=== PATIENT | female | born 1935 | race Caucasian/White ===

== ENCOUNTER 2021-07-24 05:53 | Emergency (ER) | payer MEDICARE, SELFPAY ==
--- NOTE | 2021-07-24 06:09 | ECG_ITS ---
Test Reason : HYPERTENSIVE Blood Pressure : / mmHG Vent. Rate : 076 BPM Atrial Rate : 076 BPM P-R Int : 174 ms QRS Dur : 098 ms QT Int : 386 ms P-R-T Axes : 072 -34 000 degrees QTc Int : 434 ms Sinus rhythm with Premature atrial complexes Left axis deviation Abnormal ECG When compared with ECG of 20-MAY-2020 12:00, No significant change was found Referred By: Generic ED Physician Electronically Signed By:CHRISSY VELEZ MD
[2021-07-24 06:11] VITALS: BP 196/95; PULSE 80; RESP 16; TEMP 36.7; O2SAT 97; BMI 31.7
[2021-07-24 06:37] LABS: MANUAL DIFF FLAG NO
--- NOTE | 2021-07-24 06:37 | ED_ITS ---
HPI - Weakness General Chief complaint: Weakness Stated complaint: High Blood Pressure Time Seen by Provider: 07/24/21 06:36 History of Present Illness HPI Narrative: Patient is an 85-year-old female presents today with having generalized malaise. Weakness. Feels palpitation has been ongoing since last night. Patient has a history of anxiety. No history of diabetes, hypertension, mi. patient from home. No focal weakness. No cough no congestion. Immunized for COVID. Patient from home. No focal weakness. No diaphoresis. No chest pain. No pain on urination. Related Data Allergies Allergy/AdvReac Type Severity Reaction Status Date / Time bacitracin [BACITRACIN] Allergy Intermediate BLISTERS Unverified 06/03/20 14:43 alendronate sodium Allergy Unknown TONGUE Unverified 06/03/20 14:43 [From FOSAMAX] SWELLING ciprofloxacin [CIPROFLOXACIN] Allergy Unknown TONGUE Unverified 06/03/20 14:43 SWELLING, swelling colesevelam [From WELCHOL] Allergy Unknown TONGUE Unverified 06/03/20 14:43 SWELLING metronidazole Allergy Unknown TONGUE Unverified 06/03/20 14:43 SWELLING niacin [NIACIN] Allergy Unknown TONGUE Unverified 06/03/20 14:43 SWELLING, swelling simvastatin [SIMVASTATIN] Allergy Unknown TONGUE Unverified 06/03/20 14:43 SWELLING, swelling SPECIAL SURGICAL DRESSING Allergy Intermediate BLISTERS Uncoded 06/03/20 14:43 flosamax Allergy Unknown swelling Uncoded 04/15/19 00:00 meronidacole Allergy Unknown swelling Uncoded 04/15/19 00:00 STEROIDS Allergy Unknown PRESSURE Uncoded 06/03/20 14:43 IN EYE Review of Systems Review of Systems: No chest pain or focal weakness no nausea no vomiting no change in medications Yes all other systems are reviewed and are negative [facility] Past Medical History Attestation statement: The following information was validated with the patient. Social History Social History Patient Tobacco Use Status: Never used Tobacco Use of substances other than those prescribed or required for medical reasons: No Advance Directives: No Physical Exam Vital Signs: Vital Signs: Last Vital Signs Temp 98.0 F 07/24/21 06:11 Pulse 80 07/24/21 06:11 Resp 16 07/24/21 06:11 BP 196/95 H 07/24/21 06:11 Pulse Ox 97 07/24/21 06:11 Body Mass Index 31.7 Appearance: Alert. Oriented X3. No acute distress. Eyes: Pupils equal, round and reactive to light. ENT: Pharynx normal. Neck: Normal inspection. Neck supple. No lymph nodes noted. No crepitus CVS: Normal heart rate and rhythm. Pulses normal. Normal S1 and S2 Respiratory: No respiratory distress. Breath sounds normal. No Wheezing. No rales Abdomen: Soft and nontender. No rigidity. No distention. good BS x4 Skin: Skin warm and dry. Normal skin color. Normal skin turgor. Extremities: No lower extremity edema. Neurovascular intact to all extremities. No Lacerations. No Rash Neuro: Oriented X 3. No motor deficit. No sensory deficit. Moving all extermities. No slurred speech MDM - Weakness MDM Narrative Medical decision making narrative: Patient neurologically intact. Heart rate was actually 75. EKG showed a sinus pattern OK QRS QT within normal limits is no acute ST segment elevation. Patient's electrolytes are normal. Neurologically intact. Well appearing. Symptoms improved with Ativan. Likely secondary to anxiety. Will discharge patient home. Urine showed no signs of infection. Lab Data Result diagrams: 07/24/21 06:29 07/24/21 06:29 Labs: Lab Results 07/24/21 07/24/21 07/24/21 Range/Units 06:29 06:29 06:29 WBC 6.9 (4.8-10.8) X10*3/uL RBC 4.91 (4.20-5.50) X10*6/uL Hgb 13.6 (12.0-16.0) g/dl Hct 42.1 (37.0-47.0) % MCV 85.7 (80.0-98.0) fL MCH 27.7 (27.0-33.0) pg MCHC 32.3 (31.0-35.0) g/dl RDW 13.8 (11.0-16.0) % Plt Count 272 (160-400) X10*3/uL MPV 10.0 (9.4-12.3) fL Immature Gran % (Auto) 0.4 (0.0-0.4) % Neut % (Auto) 74.3 H (45-73) % Lymph % (Auto) 16.5 L (20-40) % [place] % (Auto) 5.4 (2-11) % Eos % (Auto) 2.2 (0-4) % Baso % (Auto) 1.2 (0-2) % Lymph # (Auto) 1.1 L (1.2-4.9) X10*3/uL [place] # (Auto) 0.4 (0.1-1.2) X10*3/uL Eos # (Auto) 0.2 (0.0-0.4) X10*3/uL Baso # (Auto) 0.1 (0.0-0.2) X10*3/uL Abs Immat Gran (auto) 0.03 (0.00-0.03) X10*3/uL Absolute Neuts (auto) 5.1 (2.0-8.3) x10*3/uL Absolute Nucleated RBC 0.000 (0.0-0.012) X10*3/uL Nucleated RBC % (auto) 0.0 (0.0-0.2) /100WBC Sodium 141 (135-145) mmol/L Potassium 3.6 (3.3-5.1) mmol/L Chloride 107 (96-108) mmol/L Carbon Dioxide 26 (22-29) mmol/L Anion Gap 12 (12-20) BUN 13 (9-16) mg/dL Creatinine 0.71 (0.5-1.4) mg/dL Estim Creat Clear Calc 55.1 Estimated GFR > 60 Random Glucose 97 (60-115) mg/dL Calcium 9.1 (8.4-10.2) mg/dL Troponin I High Sens 4.0 (<3.5-17.0) ng/L Urine Color Urine Appearance Urine pH (5.0-8.0) Ur Specific [place] (1.005-1.025) Urine Protein (NEG-TRACE) MG/DL Urine Glucose (UA) (NEG) MG/DL Urine Ketones (NEG) MG/DL Urine Blood (NEG) Urine Nitrite (NEG) Ur Leukocyte Esterase (NEG) Urine RBC (0) /HPF Urine WBC (0-4) /HPF Ur Squamous Epith Cells /LPF Urine Bacteria /LPF 07/24/21 Range/Units 06:45 WBC (4.8-10.8) X10*3/uL RBC (4.20-5.50) X10*6/uL Hgb (12.0-16.0) g/dl Hct (37.0-47.0) % MCV (80.0-98.0) fL MCH (27.0-33.0) pg MCHC (31.0-35.0) g/dl RDW (11.0-16.0) % Plt Count (160-400) X10*3/uL MPV (9.4-12.3) fL Immature Gran % (Auto) (0.0-0.4) % Neut % (Auto) (45-73) % Lymph % (Auto) (20-40) % [place] % (Auto) (2-11) % Eos % (Auto) (0-4) % Baso % (Auto) (0-2) % Lymph # (Auto) (1.2-4.9) X10*3/uL [place] # (Auto) (0.1-1.2) X10*3/uL Eos # (Auto) (0.0-0.4) X10*3/uL Baso # (Auto) (0.0-0.2) X10*3/uL Abs Immat Gran (auto) (0.00-0.03) X10*3/uL Absolute Neuts (auto) (2.0-8.3) x10*3/uL Absolute Nucleated RBC (0.0-0.012) X10*3/uL Nucleated RBC % (auto) (0.0-0.2) /100WBC Sodium (135-145) mmol/L Potassium (3.3-5.1) mmol/L Chloride (96-108) mmol/L Carbon Dioxide (22-29) mmol/L Anion Gap (12-20) BUN (9-16) mg/dL Creatinine (0.5-1.4) mg/dL Estim Creat Clear Calc Estimated GFR Random Glucose (60-115) mg/dL Calcium (8.4-10.2) mg/dL Troponin I High Sens (<3.5-17.0) ng/L Urine Color STRAW Urine Appearance CLEAR Urine pH 6.0 (5.0-8.0) Ur Specific [place] <= 1.005 (1.005-1.025) Urine Protein NEG (NEG-TRACE) MG/DL Urine Glucose (UA) NEG (NEG) MG/DL Urine Ketones NEG (NEG) MG/DL Urine Blood NEG (NEG) Urine Nitrite NEG (NEG) Ur Leukocyte Esterase NEG (NEG) Urine RBC 0 (0) /HPF Urine WBC 0-2 (0-4) /HPF Ur Squamous Epith Cells 1+ /LPF Urine Bacteria TRACE /LPF Discharge Plan Discharge Clinical Impression: Anxiety Patient Disposition: Home, Self-Care Instructions: Anxiety (ED) Referrals: Roby Briscoe MD [Primary Care Provider] - 2 days
[2021-07-24 06:49] LABS: Basophils Absolute Auto 0.1 X10*3/uL (0.0-0.2); Basophils Percent Auto 1.2 % (0-2); Eosinophils Absolute Auto 0.2 X10*3/uL (0.0-0.4); Eosinophils Percent Auto 2.2 % (0-4); Hematocrit 42.1 % (37.0-47.0); Hemoglobin 13.6 g/dl (12.0-16.0); Imm Gran Abs Auto 0.03 X10*3/uL (0.00-0.03); Imm Gran Pct Auto 0.4 % (0.0-0.4); Lymphocytes Absolute Auto 1.1 X10*3/uL (1.2-4.9); Lymphocytes Percent Auto 16.5 % (20-40); Mean Corpuscular HGB Conc 32.3 g/dl (31.0-35.0); Mean Corpuscular Hemoglobin 27.7 pg (27.0-33.0); Mean Corpuscular Volume 85.7 fL (80.0-98.0); Monocytes Absolute Auto 0.4 X10*3/uL (0.1-1.2); Monocytes Percent Auto 5.4 % (2-11); Neutrophils Absolute Auto 5.1 x10*3/uL (2.0-8.3); Neutrophils Percent Auto 74.3 % (45-73); Platelet Count 272 X10*3/uL (160-400); Red Blood Count 4.91 X10*6/uL (4.20-5.50); Red Cell Distribution Width 13.8 % (11.0-16.0); White Blood Count 6.9 X10*3/uL (4.8-10.8)
[2021-07-24 06:51] LABS: Anion Gap 12 (12-20); Blood Urea Nitrogen 13 mg/dL (9-16); Calcium 9.1 mg/dL (8.4-10.2); Carbon Dioxide 26 mmol/L (22-29); Chloride 107 mmol/L (96-108); Creatinine Clr Calc Pharmacy 55.1; Estimated Glomerular Filt Rate > 60; Glucose Random 97 mg/dL (60-115); Potassium 3.6 mmol/L (3.3-5.1); Sodium 141 mmol/L (135-145)
[2021-07-24 06:52] LABS: Appearance Urine CLEAR; Color Urine STRAW; Glucose Urine UA NEG (NEG); Leukocyte Esterase Urine NEG (NEG); Nitrite Urine NEG (NEG); Specific Gravity - Urine <= 1.005 (1.005-1.025); Urine Blood NEG (NEG); Urine Ketones NEG (NEG); Urine Protein NEG (NEG-TRACE)
--- NOTE | 2021-07-24 07:02 | PC.NURSE ---
nad, sr on monitor, states she is feeling better
[2021-07-24 07:10] LABS: Bacteria Urine TRACE /LPF; RBC Urine 0 /HPF (0); Squamous Epithelial Cell Urine 1+ /LPF; WBC Urine 0-2 /HPF (0-4)
[2021-07-24] MEDS: LORazepam 0.5 MG TABLET 0.25 MG PO (07:57)
[2021-07-24 08:52] VITALS: BP 145/76; PULSE 74; RESP 15; O2SAT 98
== END 2021-07-24 08:56 | disposition home or self-care (01) ==
PROVIDERS: Emergency Provider Emergency Medicine Emergency Medical Services; PCP Internal Medicine
DX: F41.9 Anxiety disorder, unspecified (principal); R00.2 Palpitations; R53.81 Other malaise; E11.9 Type 2 diabetes mellitus without complications; I10 Essential (primary) hypertension; Z79.899 Other long term (current) drug therapy
CPT/HCPCS: 36415; 80048; 81001; 84484; 85025; 93005; 99283; 99284

== ENCOUNTER 2022-10-10 10:31 | Emergency (ER) | payer MEDICARE, SELFPAY ==
--- NOTE | ~2022-10-10 | CT_ITS ---
CT ANGIOGRAM NECK WITH CONTRAST CT ANGIOGRAM BRAIN WITH CONTRAST CLINICAL INFORMATION: Resolved slurred speech. COMPARISON: Head CT 05/20/2020. TECHNIQUE: Test bolus sequences followed by intravenous administration 70 mL of Omnipaque 350. Helical imaging was performed in the axial plane from the thoracic inlet to the skull vertex. Delayed postcontrast imaging of the head was also performed. The data was processed at the vascular technologist sonographer workstation for generation of MIP sequences. Angled MIPs and volume rendered reformatted images were also generated at an offline 3D workstation under concurrent supervision. Stenoses are assessed in accordance with NASCET criteria unless otherwise indicated. This CT examination was performed using dose optimization techniques as appropriate, variously including the following: *Automated exposure control *Adjustment of mA and/or kV according to patient size (this includes techniques or standardized protocols for targeted exams where dose is matched to indication/reason for exam; i.e. 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 [There is no intracranial hemorrhage, hydrocephalus, extra-axial surface collection, midline shift, or other herniation pattern. Rueda to white matter differentiation is diffusely maintained without evidence of an evolved acute territorial infarct. The basilar cisterns are preserved. No significant soft tissue abnormality. No acute osseous abnormality. The paranasal sinuses and the mastoid air cells are well aerated.] CERVICAL SOFT TISSUES AND LUNG APICES: There is advanced multilevel cervical spondylosis. Imaged upper lungs are clear. Multinodular thyroid gland with the largest nodule within the right thyroid lobe appearing heterogeneous, likely measuring at least 1.6 cm in size that can be further assessed with thyroid ultrasound. NECK CTA: [There is a classic 3 vessel configuration of the aortic arch. Proximal arch vessels are non-stenotic. The vertebral arteries are codominant. No significant ostial stenosis is visualized on either side. Both vertebral arteries are widely patent throughout their extracranial cervical course. Both common carotid arteries are normal in course and caliber.] There is mild atherosclerotic disease involving the right carotid bifurcation without significant stenosis involving the proximal right cervical ICA. BRAIN CTA: [There is normal opacification of major intracranial arteries. No focal flow-limiting stenosis nor discrete proximal large artery occlusion. No aneurysm. Timing of the contrast bolus allows assessment of the major dural venous sinuses, which all opacify normally] CT/CT angio head neck IMPRESSION: - There are no acute intracranial findings. Stable appearing small chronic infarct within the right occipital lobe. - No acute arterial occlusions and no significant arterial stenoses within the head or neck. - Multinodular thyroid gland with the largest nodule within the right thyroid lobe appearing heterogeneous, likely measuring at least 1.6 cm in size that can be further assessed with thyroid ultrasound. - Advanced multilevel cervical spondylosis.
--- NOTE | 2022-10-10 10:36 | ECG_ITS ---
Test Reason : HYPERTENSION Blood Pressure : / mmHG Vent. Rate : 077 BPM Atrial Rate : 077 BPM P-R Int : 182 ms QRS Dur : 098 ms QT Int : 388 ms P-R-T Axes : 019 -35 -17 degrees QTc Int : 439 ms Sinus rhythm with Premature atrial complexes Left axis deviation Minimal voltage criteria for LVH, may be normal variant ( R in aVL ) Abnormal ECG When compared with ECG of 24-JUL-2021 07:19, No significant change was found Referred By: Marleny Kaur Electronically Signed By:NGUYEN BOYKIN
[2022-10-10 10:38] LABS: Glucose, Whole Blood 102 mg/dL (60-115)
--- NOTE | 2022-10-10 10:39 | ED.NEUROSD ---
HPI - Neuro Symptoms/Deficit General Chief Complaint: Neuro Symptoms/Deficit Stated Complaint: ?TIA,-THIN,1/2LKWT,HI BP 198/97,L FACE DROOP RESOL Time Seen by Provider: 10/10/22 10:33 Source: patient, EMS and other (spouse) Mode of arrival: EMS Limitations: no limitations History of Present Illness HPI Narrative: 86 yo female with hx of anxiety has been under a lot of stress with husbands medical bills noted today she for seconds with basically one word had a hard time getting the word out and felt dizzy but this lasted for seconds and she was back to baseline. EMS noted no symptoms. she was HTNive. She took her anxiety medications. NO prior strokes not on blood thinners. Onset (ago): hour(s) (1) Timing confirmed by: spouse Location: speech History of same: No Severity: mild Quality: other (they report had a hard time getting a word out and her lip quivered) Relieving factors: time Exacerbating factors: none Context: sudden onset (only lasted about 5 seconds) On Anticoagulants: No Associated symptoms: other (anxiety) Treatments Prior to Arrival: other (aleve and buspirone) Related Data Allergies Allergy/AdvReac Type Severity Reaction Status Date / Time bacitracin [BACITRACIN] Allergy Intermediate BLISTERS Unverified 06/03/20 14:43 alendronate sodium Allergy Unknown TONGUE Unverified 06/03/20 14:43 [From FOSAMAX] SWELLING ciprofloxacin [CIPROFLOXACIN] Allergy Unknown TONGUE Unverified 06/03/20 14:43 SWELLING, swelling colesevelam [From WELCHOL] Allergy Unknown TONGUE Unverified 06/03/20 14:43 SWELLING metronidazole Allergy Unknown TONGUE Unverified 06/03/20 14:43 SWELLING niacin [NIACIN] Allergy Unknown TONGUE Unverified 06/03/20 14:43 SWELLING, swelling simvastatin [SIMVASTATIN] Allergy Unknown TONGUE Unverified 06/03/20 14:43 SWELLING, swelling SPECIAL SURGICAL DRESSING Allergy Intermediate BLISTERS Uncoded 06/03/20 14:43 flosamax Allergy Unknown swelling Uncoded 04/15/19 00:00 meronidacole Allergy Unknown swelling Uncoded 04/15/19 00:00 STEROIDS Allergy Unknown PRESSURE Uncoded 06/03/20 14:43 IN EYE Review of Systems Review of Systems: Constitutional : No Fever, No Chills, No Fatigue ENT/Mouth : No sore throat, No Rhinorrhea Eyes: No Eye Pain, No Swelling, No Redness Cardiovascular : No Chest Pain, No SOB, No Dyspnea on Exertion Respiratory : No Cough, No Sputum Gastrointestinal : No Nausea, No Vomiting, No Diarrhea, No abdominal Pain Genitourinary : No Dysuria, No Urinary Frequency, No Hematuria, Musculoskeletal : No joint pain, No Myalgias, No Joint Swelling Skin : No Skin Lesions, No rash Neuro : No Weakness, No Numbness, No Dizziness, no Headache Psych : pos Anxiety/Panic, No Depression Heme/Lymph: No Bruising, No Bleeding,No Lymphadenopathy Endocrine : No Polyuria, No Polydipsia All other systems reviewed and are negative [facility] Past Medical History Attestation statement: The following information was validated with the patient. Medical History Anxiety Social History Social History Patient Tobacco Use Status: Never used Tobacco Advance Directives: Yes Advance Directives on File: Yes Advance Directives Date on File: 09/26/22 Physical Exam Vital Signs: Vital Signs: Last Vital Signs Temp 98.3 F 10/10/22 14:40 Pulse 75 10/10/22 14:40 Resp 16 10/10/22 14:40 BP 170/75 H 10/10/22 14:40 Pulse Ox 97 10/10/22 14:40 O2 Del Method 10/10/22 14:40 BMI result Body Mass Index 29.0 Appearance: Alert. Oriented X3. No acute distress. anxious Eyes: Pupils equal, round and reactive to light. ENT: Pharynx normal. Neck: Normal inspection. Neck supple. CVS: Normal heart rate and rhythm. Pulses normal. Respiratory: No respiratory distress. Breath sounds normal. Abdomen: Soft and nontender. Skin: Skin warm and dry. Normal skin color. Normal skin turgor. Extremities: No lower extremity edema. No calf ttp Neuro: Oriented X 3. No motor deficit. No sensory deficit. Course Course Course Narrative: discussed with neurology given symptoms and only 5 seconds unlikely to be 5 seconds Medications Administered Discontinued Medications Generic Name Dose Route Start Last Admin Trade Name Freq PRN Reason Stop Dose Admin Iohexol 100 ml 10/10/22 13:24 10/10/22 13:25 Iohexol 350 Mg/Ml 100 Ml Infus..Btl IV 10/10/22 13:25 70 ml ONCE ONE Administration Medical Decision Making Medical Decision Making MDM Narrative: 86 yo female with PMH of anxiety per her and presented with 5 seconds of lip quiver and had a hard time getting one word out - at this time EMS noted no symptoms, NIH 0, she is at baseline, BP trending down - CTA and labs ordered, could be anxiety vs TIA though very brief and 5 seconds with lip quiver and one word seems very unusual. Dispo per results and findings. Differential Diagnosis Differential Diagnoses: The differential diagnosis associated with the presentation includes anxiety, TIA, HTN urgency Consult Healthcare Provider Management of the patient was discussed with: Transfer Controller (neurologist - unlikely to be TIA) Lab Data [facility] Lab Attestation statement: I reviewed the patient's lab results. 10/10/22 11:04 10/10/22 11:03 Labs: Lab Results 10/10/22 10/10/22 10/10/22 Range/Units 10:35 10:57 11:03 WBC (4.8-10.8) X10*3/uL RBC (4.20-5.50) X10*6/uL Hgb (12.0-16.0) g/dl Hct (37.0-47.0) % MCV (80.0-98.0) fL MCH (27.0-33.0) pg MCHC (31.0-35.0) g/dl RDW (11.0-16.0) % Plt Count (160-400) X10*3/uL MPV (9.4-12.3) fL Immature Gran % (Auto) (0.0-0.4) % Neut % (Auto) (45-73) % Lymph % (Auto) (20-40) % [place] % (Auto) (2-11) % Eos % (Auto) (0-4) % Baso % (Auto) (0-2) % Lymph # (Auto) (1.2-4.9) X10*3/uL [place] # (Auto) (0.1-1.2) X10*3/uL Eos # (Auto) (0.0-0.4) X10*3/uL Baso # (Auto) (0.0-0.2) X10*3/uL Abs Immat Gran (auto) (0.00-0.03) X10*3/uL Absolute Neuts (auto) (2.0-8.3) x10*3/uL Absolute Nucleated RBC (0.0-0.012) X10*3/uL Nucleated RBC % (auto) (0.0-0.2) /100WBC PT (10.0-13.1) SEC INR (0.9-1.1) Sodium 143 (135-145) mmol/L Potassium 4.3 (3.3-5.1) mmol/L Chloride 109 H (96-108) mmol/L Carbon Dioxide 25 (22-29) mmol/L Anion Gap 13 (12-20) BUN 19 H (9-16) mg/dL Creatinine 0.75 (0.5-1.4) mg/dL Estim Creat Clear Calc 59.1 Estimated GFR > 60 POC Glucose 102 (60-115) mg/dL Random Glucose 100 (60-115) mg/dL Calcium 9.5 (8.4-10.2) mg/dL Magnesium 2.0 (1.6-2.6) mg/dL Total Bilirubin 0.7 (0.0-1.0) mg/dL Direct Bilirubin 0.2 (0.0-0.5) mg/dL AST 16 (5-31) U/L ALT 15 (0-31) U/L Alkaline Phosphatase 94 (39-117) U/L Troponin I High Sens (<3.5-17.0) ng/L Total Protein 6.9 (6.5-8.0) g/dL Albumin 4.1 (3.5-5.0) g/dL Urine Color Urine Appearance Urine pH (5.0-9.0) Ur Specific [place] (1.005-1.025) Urine Protein (Neg-Trace) mg/dL Urine Glucose (UA) (Negative) mg/dL Urine Ketones (Negative) mg/dL Urine Blood (Negative) Urine Nitrite (Negative) Ur Leukocyte Esterase (Negative) COVID-19 (ALAN) Negative (Negative) COVID-19 Clin Com See Note 10/10/22 10/10/22 10/10/22 Range/Units 11:03 11:03 11:04 WBC 6.4 (4.8-10.8) X10*3/uL RBC 5.27 (4.20-5.50) X10*6/uL Hgb 14.3 (12.0-16.0) g/dl Hct 44.7 (37.0-47.0) % MCV 84.8 (80.0-98.0) fL MCH 27.1 (27.0-33.0) pg MCHC 32.0 (31.0-35.0) g/dl RDW 13.7 (11.0-16.0) % Plt Count 266 (160-400) X10*3/uL MPV 9.8 (9.4-12.3) fL Immature Gran % (Auto) 0.3 (0.0-0.4) % Neut % (Auto) 76.1 H (45-73) % Lymph % (Auto) 17.0 L (20-40) % [place] % (Auto) 4.4 (2-11) % Eos % (Auto) 1.1 (0-4) % Baso % (Auto) 1.1 (0-2) % Lymph # (Auto) 1.1 L (1.2-4.9) X10*3/uL [place] # (Auto) 0.3 (0.1-1.2) X10*3/uL Eos # (Auto) 0.1 (0.0-0.4) X10*3/uL Baso # (Auto) 0.1 (0.0-0.2) X10*3/uL Abs Immat Gran (auto) 0.02 (0.00-0.03) X10*3/uL Absolute Neuts (auto) 4.8 (2.0-8.3) x10*3/uL Absolute Nucleated RBC 0.000 (0.0-0.012) X10*3/uL Nucleated RBC % (auto) 0.0 (0.0-0.2) /100WBC PT 11.2 (10.0-13.1) SEC INR 1.0 (0.9-1.1) Sodium (135-145) mmol/L Potassium (3.3-5.1) mmol/L Chloride (96-108) mmol/L Carbon Dioxide (22-29) mmol/L Anion Gap (12-20) BUN (9-16) mg/dL Creatinine (0.5-1.4) mg/dL Estim Creat Clear Calc Estimated GFR POC Glucose (60-115) mg/dL Random Glucose (60-115) mg/dL Calcium (8.4-10.2) mg/dL Magnesium (1.6-2.6) mg/dL Total Bilirubin (0.0-1.0) mg/dL Direct Bilirubin (0.0-0.5) mg/dL AST (5-31) U/L ALT (0-31) U/L Alkaline Phosphatase (39-117) U/L Troponin I High Sens 4.8 (<3.5-17.0) ng/L Total Protein (6.5-8.0) g/dL Albumin (3.5-5.0) g/dL Urine Color Urine Appearance Urine pH (5.0-9.0) Ur Specific [place] (1.005-1.025) Urine Protein (Neg-Trace) mg/dL Urine Glucose (UA) (Negative) mg/dL Urine Ketones (Negative) mg/dL Urine Blood (Negative) Urine Nitrite (Negative) Ur Leukocyte Esterase (Negative) COVID-19 (ALAN) (Negative) COVID-19 Clin Com 10/10/22 Range/Units 11:14 WBC (4.8-10.8) X10*3/uL RBC (4.20-5.50) X10*6/uL Hgb (12.0-16.0) g/dl Hct (37.0-47.0) % MCV (80.0-98.0) fL MCH (27.0-33.0) pg MCHC (31.0-35.0) g/dl RDW (11.0-16.0) % Plt Count (160-400) X10*3/uL MPV (9.4-12.3) fL Immature Gran % (Auto) (0.0-0.4) % Neut % (Auto) (45-73) % Lymph % (Auto) (20-40) % [place] % (Auto) (2-11) % Eos % (Auto) (0-4) % Baso % (Auto) (0-2) % Lymph # (Auto) (1.2-4.9) X10*3/uL [place] # (Auto) (0.1-1.2) X10*3/uL Eos # (Auto) (0.0-0.4) X10*3/uL Baso # (Auto) (0.0-0.2) X10*3/uL Abs Immat Gran (auto) (0.00-0.03) X10*3/uL Absolute Neuts (auto) (2.0-8.3) x10*3/uL Absolute Nucleated RBC (0.0-0.012) X10*3/uL Nucleated RBC % (auto) (0.0-0.2) /100WBC PT (10.0-13.1) SEC INR (0.9-1.1) Sodium (135-145) mmol/L Potassium (3.3-5.1) mmol/L Chloride (96-108) mmol/L Carbon Dioxide (22-29) mmol/L Anion Gap (12-20) BUN (9-16) mg/dL Creatinine (0.5-1.4) mg/dL Estim Creat Clear Calc Estimated GFR POC Glucose (60-115) mg/dL Random Glucose (60-115) mg/dL Calcium (8.4-10.2) mg/dL Magnesium (1.6-2.6) mg/dL Total Bilirubin (0.0-1.0) mg/dL Direct Bilirubin (0.0-0.5) mg/dL AST (5-31) U/L ALT (0-31) U/L Alkaline Phosphatase (39-117) U/L Troponin I High Sens (<3.5-17.0) ng/L Total Protein (6.5-8.0) g/dL Albumin (3.5-5.0) g/dL Urine Color Yellow Urine Appearance Clear Urine pH 7.5 (5.0-9.0) Ur Specific [place] 1.010 (1.005-1.025) Urine Protein Negative (Neg-Trace) mg/dL Urine Glucose (UA) Negative (Negative) mg/dL Urine Ketones Trace (Negative) mg/dL Urine Blood Negative (Negative) Urine Nitrite Negative (Negative) Ur Leukocyte Esterase Negative (Negative) COVID-19 (ALAN) (Negative) COVID-19 Clin Com Independent Interpretation I performed an independent interpretation of an: EKG and CT Scan (no acute findings) Interpretation: Rate: 77 Rhythm: NSR [place]: left , LVH Normal P waves. Normal SHAAN. Normal QRS complex. ST T wave : no RAJENDRA, t wave inversion III and aVF qTC: normal prior studies: no acute ischemia The study has been interpreted contemporaneously by me. . Independent Historian Clinical information obtained from an independent historian. History obtained from or confirmed by: Spouse Prescription Management I considered prescription management with: Other (aspirin 81mg) NIH Stroke Scale Internal: Initial- Upon Arrival Level of Consciousness: Alert Level of Consciousness Questions: Answers both questions correctly Level of Consciousness Commands: Performs both tasks correctly Best Gaze: Normal Visual: No visual loss Facial Palsy: Normal Motor Arm (Right): No drift Motor Arm (Left): No drift Motor Leg (Right): No drift Motor Leg (Left): No drift Limb Ataxia: Absent Sensory: Normal Best Language: No aphasia Dysarthia: Normal Extinction and Inattention: No abnormality Score: 0 Discharge Plan Discharge Clinical Impression: Slurred speech Patient Disposition: Home, Self-Care Instructions: Transient Ischemic Attack (ED) Additional Instructions: return to ED for any worsening symptoms or concerns take a baby aspirin 81mg daily do not take with aleve, ibuprofen or any other NSAIDs follow up with your doctor this week return for numbness weakness or any other concerns. take your anxiety medications as prescribed Interventions: ED Discharge Assessment Last Done: 10/10/22 15:03 Discharge Date/Time: 10/10/22 15:23
[2022-10-10 10:47] VITALS: BP 175/77; PULSE 71; RESP 16; TEMP 36.7; O2SAT 98; BMI 29.0
[2022-10-10 10:49] VITALS: BP 175/77; PULSE 71; RESP 16; TEMP 36.7; O2SAT 99
--- NOTE | 2022-10-10 10:51 | PC.NURSE ---
86 y/o F BIBA from home with 5 second episode of word finding difficulty, sx now resolved. no facial droop/no thinners. HTN at home. pt is aox3, neuros intact. plan for labs. pt in gown, on monitor.
[2022-10-10 11:19] LABS: MANUAL DIFF FLAG NO
[2022-10-10 11:22] LABS: Basophils Absolute Auto 0.1 X10*3/uL (0.0-0.2); Basophils Percent Auto 1.1 % (0-2); Eosinophils Absolute Auto 0.1 X10*3/uL (0.0-0.4); Eosinophils Percent Auto 1.1 % (0-4); Hematocrit 44.7 % (37.0-47.0); Hemoglobin 14.3 g/dl (12.0-16.0); Imm Gran Abs Auto 0.02 X10*3/uL (0.00-0.03); Imm Gran Pct Auto 0.3 % (0.0-0.4); Lymphocytes Absolute Auto 1.1 X10*3/uL (1.2-4.9); Mean Corpuscular Hemoglobin 27.1 pg (27.0-33.0); Mean Corpuscular Volume 84.8 fL (80.0-98.0); Mean Platelet Volume 9.8 fL (9.4-12.3); Monocytes Absolute Auto 0.3 X10*3/uL (0.1-1.2); Monocytes Percent Auto 4.4 % (2-11); Neutrophils Absolute Auto 4.8 x10*3/uL (2.0-8.3); Neutrophils Percent Auto 76.1 % (45-73); Platelet Count 266 X10*3/uL (160-400); Red Blood Count 5.27 X10*6/uL (4.20-5.50); Red Cell Distribution Width 13.7 % (11.0-16.0); White Blood Count 6.4 X10*3/uL (4.8-10.8)
[2022-10-10 11:28] LABS: Prothrombin Time 11.2 SEC (10.0-13.1)
[2022-10-10 11:29] LABS: Appearance Urine Clear; Color Urine Yellow; Glucose Urine UA Negative (Negative); Leukocyte Esterase Urine Negative (Negative); Nitrite Urine Negative (Negative); PH 7.5 (5.0-9.0); Urine Blood Negative (Negative); Urine Ketones Trace mg/dL (Negative); Urine Protein Negative (Neg-Trace)
[2022-10-10 11:37] LABS: COVID-19 Test Negative (Negative); IDNOW Serial# 16C4AD1C
[2022-10-10 11:48] LABS: Troponin-I High Sensitivity 4.8 ng/L (<3.5-17.0)
[2022-10-10 11:56] LABS: Alanine Aminotransferase 15 U/L (0-31); Albumin Level 4.1 g/dL (3.5-5.0); Alkaline Phosphatase 94 U/L (39-117); Anion Gap 13 (12-20); Aspartate Amino Transferase 16 U/L (5-31); Bilirubin Total 0.7 mg/dL (0.0-1.0); Blood Urea Nitrogen 19 mg/dL (9-16); Calcium 9.5 mg/dL (8.4-10.2); Carbon Dioxide 25 mmol/L (22-29); Chloride 109 mmol/L (96-108); Creatinine Clr Calc Pharmacy 59.1; Estimated Glomerular Filt Rate > 60; Glucose Random 100 mg/dL (60-115); Potassium 4.3 mmol/L (3.3-5.1); Sodium 143 mmol/L (135-145); Total Protein 6.9 g/dL (6.5-8.0)
[2022-10-10 12:47] LABS: Bilirubin Direct 0.2 mg/dL (0.0-0.5)
[2022-10-10] MEDS: iohexoL 350 MG/ML 100 ML INFUS..BTL IV (13:25)
[2022-10-10 14:40] VITALS: BP 170/75; PULSE 75; RESP 16; TEMP 36.8; O2SAT 97
--- NOTE | 2022-10-10 15:13 | MHC.STROKE ---
1027 EMS PRE-NOTIFIED STROKE ALERT , DIFFICULTY SPEAKING LASTED 5 MINUTES. ARRIVED AT 1031, DR GILLESPIE EXAMINED PATIENT, NIHSS = 0, STROKE PROTOCOL NOT ACTIVATED. CT CTA H/N DONE. NO LVO. PRIOR STROKE NOTED. PATIENT NOT ON ASPIRIN, CASE DISCUSSED WITH DR CASEY. WILL START PATIENT ON ASPIRIN 81MG DAILY. I EXPLAINED THAT TO HER AND HER , I REVIEWED HER INDIVIDUAL RISK FACTORS FOR STROKE, WE ALSO DISCUSS ANTI-ANXIETY TECHNIQUES BECAUSE HER RELAYED THAT SHE GETS VERY NERVOUS, I PROVIDED REASSURANCE AND ANSWERED ALL OF THEIR QUESTIONS. SHE PASSED THE NURSING SWALLOW SCREEN PRIOR TO PO. SHE SEES DR QUIÑONES, HER PRIOR PCP RETIRED. SHE WILL FOLLOW UP WITH DR QUIÑONES AND CONSIDER A STATIN FOR FUTURE STROKE PREVENTION WELL. ALL OF THIS INFORMATION WAS RELAYED TO VERNA AND GABY.
== END 2022-10-10 15:23 | disposition home or self-care (01) ==
PROVIDERS: Emergency Provider Emergency Medicine; PCP Internal Medicine
DX: R47.81 Slurred speech (principal); R29.810 Facial weakness; F43.9 Reaction to severe stress, unspecified; Z20.822 Contact with and (suspected) exposure to COVID-19; Z20.828 Contact with and (suspected) exposure to other viral communicable diseases; Z79.899 Other long term (current) drug therapy
CPT/HCPCS: 36415; 70496; 70498; 80048; 80076; 81003; 82947; 83735; 84484; 85025; 85610; 87635; 93005; 99285; Q9967

== ENCOUNTER 2024-04-22 05:54 | Observation (INO) | payer MEDICARE, SELFPAY ==
[2024-04-22] VITALS (16 sets, daily range): BP systolic 128–181; BP diastolic 72–104; PULSE 70–90; RESP 10–18; TEMP 36.5–36.9; O2SAT 93–99; BMI 24.1; BMI 24.9
--- NOTE | 2024-04-22 | ECG_ITS ---
Test Reason : DIZZY Blood Pressure : / mmHG Vent. Rate : 082 BPM Atrial Rate : 082 BPM P-R Int : 204 ms QRS Dur : 102 ms QT Int : 378 ms P-R-T Axes : 063 -38 -11 degrees QTc Int : 441 ms Normal sinus rhythm Left axis deviation Abnormal ECG When compared with ECG of 10-OCT-2022 10:46, Premature atrial complexes are no longer Present Referred By: Generic ED Physician Electronically Signed By:ELBA MITCHELL MD
--- NOTE | ~2024-04-22 | CT_ITS ---
EXAMINATION: CT HEAD WITHOUT CONTRAST CLINICAL INFORMATION: Hypertension, acute onset dizziness COMPARISON: CT scan of brain on 10/10/2022 TECHNIQUE: Contiguous axial imaging was performed from the skull base to vertex without intravenous administration of contrast. This CT examination was performed using dose optimization techniques as appropriate, variously including the following: *Automated exposure control *Adjustment of mA and/or kV according to patient size (this includes techniques or standardized protocols for targeted exams where dose is matched to indication/reason for exam; i.e. extremities or head) *Use of iterative reconstruction technique DLP: 663 mGy-cm FINDINGS: Ventricles, sulci and cisterns are dilated. Wedge-shaped encephalomalacia is seen in lateral right occipital lobe. Unchanged asymmetric decrease in attenuation is seen in anterior limb of right internal capsule extending to anterior right may radiata. There is no midline shift, no abnormal intra- or extra- axial fluid accumulation. Rueda and white matter differentiation is normal. Bone window images show no evidence of skull fracture. CT/CT head/brain wo IV con IMPRESSION: 1. Unchanged age related cerebral atrophy and ventriculomegaly. 2. No intracranial hemorrhage or skull fracture is seen. 3. No evidence of space occupying lesion could be found. 4. 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 5. 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 6. The current plain CT scan of the brain shows no diagnostic evidence of acute cerebral infarction.
--- NOTE | ~2024-04-22 | XR_ITS ---
EXAMINATION: XR CHEST CLINICAL INFORMATION: Dizziness COMPARISON: CT chest 12/01/2015 Chest radiograph 01/21/2015 TECHNIQUE: Frontal view of the chest was obtained. FINDINGS: There is mild cardiac enlargement. No gross CHF is present. No pleural effusions are seen. No consolidations. Opacity overlying distal end of the left first rib likely a compilation of shadows. Small subcentimeter lung nodules seen at the time of the prior CT scan are beyond the resolution of this exam. Severe degenerative changes are present in both shoulders along with the spine. Biconvex thoracolumbar scoliosis is present. XR/XR chest 1V IMPRESSION: No acute intrathoracic disease. Incidental findings as described above.
--- NOTE | 2024-04-22 06:11 | PC.NURSE ---
provider aware of Blood pressure
[2024-04-22 06:26] LABS: MANUAL DIFF FLAG NO
--- NOTE | 2024-04-22 06:30 | ED.GENADULT ---
HPI - General Adult General Chief complaint: General Medical Stated complaint: HTN Time Seen by Provider: 04/22/24 06:30 Source: patient and RN notes reviewed Mode of arrival: ambulatory Limitations: no limitations History of Present Illness ED Provider: Lupe Clark PA-C HPI narrative: This is a 88-year-old female, with a history of TIA, who presents emergency department via EMS with complaints of high blood pressure and dizziness upon awakening this morning. Patient reports that upon wakening this morning she went to get up to use the bathroom and suddenly felt profoundly dizzy. She felt as though she was on a boat as well as the room was spinning around her. She called out to her who was in the other room out of approximately 5:15AM and patient then had her blood pressure taken by her and it was 180/120. She states that they then called 911 at that time. Her believes that she has not been drinking an adequate amount of water lately. She denies any headaches, chest pain, shortness for breath. No fevers or chills. No recent illness. She denies any recent surgery. Last TIA was many years ago. No other complaints or concerns at this time. MD complaint: Dizziness, high blood pressure Onset (ago): day(s) Radiation: non-radiation Quality: aching Pain Consistency: constant Relieving factors: none Exacerbating factors: none Associated symptoms: denies other symptoms Treatments prior to arrival: none Related Data Home Medications ?Medication ?Instructions ?Recorded ?Confirmed aspirin 81 mg tablet,delayed 81 mg PO DAILY 04/22/24 04/22/24 release dorzolamide 22.3 mg-timolol 6.8 1 drp ophthalmic (eye) Q12H 04/22/24 04/22/24 mg/mL eye drops latanoprost 0.005 % eye drops 1 drp ophthalmic (eye) BEDTIME 04/22/24 04/22/24 multivitamin 1 tab PO DAILY 04/22/24 04/22/24 Previous Rx's ?Medication ?Instructions ?Recorded meclizine 25 mg tablet 25 mg PO Q6H PRN Dizziness #15 tabs 04/24/24 metoprolol tartrate 25 mg tablet 25 mg PO BID #180 tabs 04/24/24 Allergies Allergy/AdvReac Type Severity Reaction Status Date / Time bacitracin [BACITRACIN] Allergy Intermediate BLISTERS Verified 04/22/24 18:22 alendronate sodium Allergy Unknown TONGUE Verified 04/22/24 18:22 [From FOSAMAX] SWELLING ciprofloxacin [CIPROFLOXACIN] Allergy Unknown TONGUE Verified 04/22/24 18:22 SWELLING, swelling colesevelam [From WELCHOL] Allergy Unknown TONGUE Verified 04/22/24 18:22 SWELLING metronidazole Allergy Unknown TONGUE Verified 04/22/24 18:22 SWELLING niacin [NIACIN] Allergy Unknown TONGUE Verified 04/22/24 18:22 SWELLING, swelling simvastatin [SIMVASTATIN] Allergy Unknown TONGUE Verified 04/22/24 18:22 SWELLING, swelling SPECIAL SURGICAL DRESSING Allergy Intermediate BLISTERS Uncoded 04/22/24 18:22 flosamax Allergy Unknown swelling Uncoded 04/22/24 18:22 meronidacole Allergy Unknown swelling Uncoded 04/22/24 18:22 STEROIDS Allergy Unknown PRESSURE Uncoded 04/22/24 18:22 IN EYE Review of Systems Review of Systems: Yes all other systems are reviewed and are negative Constitutional: Constitutional: Reports as per HPI ENT: Reports Normal hearing present Neurologic: Reports Normal hearing present [facility] Past Medical History Attestation statement: The following information was validated with the patient. Medical History History of TIA (transient ischemic attack) Anxiety Social History Social History Household Members: Spouse Housing: House Do you presently have visiting nurse or other home services: No Patient Tobacco Use Status: Never used Tobacco Advance Directives Date on File: 09/26/22 service: No Physical Exam ED Vital Signs: Vital Signs - 24 hr 04/22/24 06:11 04/22/24 06:21 04/22/24 06:34 Temperature 97.7 F Pulse Rate 83 81 81 Respiratory Rate 17 15 Blood Pressure 181/104 H Pulse Oximetry 99 97 Oxygen Delivery Method Room Air Room Air Oxygen Flow Rate 04/22/24 06:38 04/22/24 06:58 04/22/24 07:20 Temperature 97.7 F Pulse Rate 78 70 72 Respiratory Rate 16 12 Blood Pressure 158/78 H 158/87 H 156/83 H Pulse Oximetry 97 96 Oxygen Delivery Method Room Air Room Air Oxygen Flow Rate 04/22/24 08:05 04/22/24 10:24 04/22/24 12:13 Temperature 97.8 F 98.5 F Pulse Rate 74 76 81 Respiratory Rate 12 12 18 Blood Pressure 172/95 H 158/77 H 171/87 H Pulse Oximetry 98 97 Oxygen Delivery Method Room Air Room Air Room Air Oxygen Flow Rate 04/22/24 12:14 04/22/24 13:48 04/22/24 14:24 Temperature Pulse Rate 88 87 90 Respiratory Rate 14 14 11 L Blood Pressure 171/87 H 136/79 128/84 Pulse Oximetry 97 93 Oxygen Delivery Method Room Air Nasal Cannula Oxygen Flow Rate 3 BMI result Body Mass Index 24.1 Const General: cooperative, comfortable and no acute distress Orientation/consciousness: patient oriented x3 Limitations: no limitations HENMT Head: Yes normal to inspection, Yes normocephalic and Yes atraumatic Ears: hearing grossly normal bilaterally General nose exam: Normal external nose present Face and sinus: Yes normal facial exam Mouth: Normal oral and palatal mucosa present, oropharynx normal and moist mucous membranes Throat: Yes posterior oropharynx normal Eyes General: appearance normal, both eyes and all related structures Eyelids: Yes eyelids normal Conjunctivae: conjunctivae normal Sclerae: sclerae normal Pupils: Equal, round and reactive pupils present EOM: EOMs intact bilaterally Neck Neck: Yes normal visual inspection, Yes full ROM, Yes no lymphadenopathy and Yes no meningeal signs Lymphatic: no lymphadenopathy noted Chest Chest palpation & inspection: normal inspection of the chest Resp Effort & Inspection: normal respiratory effort and able to speak in complete sentences Auscultation: clear to auscultation bilaterally, no crackles, no rales, no rhonchi and no wheezes Cardio Rate: regular rate Rhythm: regular rhythm Heart sounds: S1 normal heart sound present and S2 normal heart sound present GI Inspection: Yes normal to inspection Skin General skin exam: no rashes or lesions noted Trauma: no lacerations or abrasions Wounds: no wounds Neuro General: patient oriented x3, moves all extremities, no meningeal signs and no focal motor deficits Cranial nerves: Yes CN's II-XII intact bilaterally, Yes Equal, round and reactive pupils present, Yes Bilaterally intact EOM present, Yes Normal facial strength present, Yes Midline tongue present, Yes Symmetric palate elevation present, Yes Normal hearing present, Yes Ability to bilaterally rotate head present and Yes Ability to bilaterally elevate shoulders present Cognition (Neuro): normal cognition Motor exam (neuro): 5/5 motor strength present throughout and Pronator motor function not present Coordination: [id number] test normal and [id number] test normal Extrem General: Yes normal to inspection Right upper extremity: normal to inspection Left upper extremity: normal to inspection Right lower extremity: normal to inspection Left lower extremity: normal to inspection NIH Stroke Scale Internal: Initial- Upon Arrival Time: 06:58 Level of Consciousness: Alert Level of Consciousness Questions: Answers both questions correctly Level of Consciousness Commands: Performs both tasks correctly Best Gaze: Normal Visual: No visual loss Facial Palsy: Normal Motor Arm (Right): No drift Motor Arm (Left): No drift Motor Leg (Right): No drift Motor Leg (Left): No drift Limb Ataxia: Absent Sensory: Normal Best Language: No aphasia Dysarthia: Normal Extinction and Inattention: No abnormality Score: 0 Course Reevaluation(s) Reevaluation #1: Patient unable to tolerate orthostatics due to profound dizziness. Will medicate with IV fluids. Dr. Dasilva recommending meclizine. Time: 07:39 Reevaluation #2: Patient re-evaluated, still reporting nausea and dizziness. She has received 1 L of IV fluids. Will medicate with Reglan 10mg IV. Time: 09:51 Reevaluation #3: Received critical troponin, this was a 2nd draw of 73.8. First troponin was 15. Pt feeling slightly improved, still having slight nausea and dizziness. Will admit to hospital service for positive tropinin and dizziness. Time: 11:23 Additional Reevaluation(s): 04/22/2024 1344 - still awaiting transfer of care at this point. Patient reporting increasing anxiety. Blood pressure 136/79. Patient re-evaluated again with Dr. Dasilva, attempted to get pt up out of bed, and unable to stand due to dizziness. If laying there, she does not experience any dizziness. Symptoms occur with positional changes. Reached out to Dr. Amor, from cardiology for input regarding +troponin. 1404 - spoke to Dr. Amor, Cardiology, stating that positive troponin likely due LV strain, recommending serial troponins every 6-8 hours as well as echocardiogram. Dr. Dasilva recommending valium 5mg dosage to help with nausea and vertigo. 1438 - Pt with drowsiness and decreased O2 after receiving valium 5mg, should have been PO but was ordered IV, pt placed on supplemental O2, she is arousable and alert, but droswy. Will continue to closely monitor. Pt was taken off of O2 after 1 hour of monitoring, she alert and oriented throughout entirety. Pt admitted to the hospital service for further management and workup for dizziness. Medications Administered Discontinued Medications Generic Name Dose Route Start Last Admin Trade Name Rodrigo PRN Reason Stop Dose Admin Aspirin 81 mg 04/23/24 09:00 04/24/24 09:21 Aspirin Enteric Coated 81 Mg Tablet.Dr PO 81 mg DAILY MAXWELL Administration Diazepam 5 mg 04/22/24 14:05 04/22/24 14:11 Diazepam 10 Mg/2 Ml Cartridge IVPUSH 04/22/24 14:06 5 mg STAT STA Administration Dorzolamide/Timolol 1 drop 04/22/24 15:30 04/22/24 18:33 Dorzolamide/Timolo 2.23%/0.68% 10 Ml Drbtl EYE-BOTH Not Given Q12H MAXWELL Dorzolamide/Timolol 1 drop 04/22/24 21:00 04/24/24 09:22 Dorzolamide/Timolo 2.23%/0.68% 10 Ml Drbtl EYE-BOTH 1 drop BID MAXWELL Administration Heparin Sodium (Porcine) 5,000 unit 04/22/24 16:00 04/24/24 03:35 Heparin Sodium,Porcine 5,000 Unit/Ml Vial SUBCUT 5,000 unit Q12H MAXWELL Administration Sodium Chloride 1,000 mls @ 999 mls/hr 04/22/24 07:39 04/22/24 08:41 Ns IV 04/22/24 08:39 Infused .Q1H1M ONE Infusion Sodium Chloride 1,000 mls @ 500 mls/hr 04/22/24 10:18 04/22/24 13:00 Ns IV 04/22/24 12:17 Infused .Q2H ONE Infusion Labetalol HCl 10 mg 04/22/24 06:15 04/22/24 06:34 Labetalol Hcl 100 Mg/20 Ml Vial IVPUSH 04/22/24 06:16 10 mg ONCE ONE Administration Latanoprost 1 drop 04/22/24 21:00 04/23/24 20:38 Latanoprost 0.005 % Ophth Amarilys 2.5 Ml Drops EYE-BOTH 1 drop BEDTIME MAXWELL Administration Meclizine HCl 25 mg 04/22/24 07:38 04/22/24 08:40 Meclizine Hcl 25 Mg Tablet PO 04/22/24 07:39 25 mg ONCE ONE Administration Meclizine HCl 25 mg 04/23/24 10:38 04/23/24 20:38 Meclizine Hcl 25 Mg Tablet PO 25 mg Q6H PRN Administration Dizziness Metoclopramide HCl 10 mg 04/22/24 10:17 04/22/24 10:51 Metoclopramide Hcl 10 Mg/2 Ml Vial IVPUSH 04/22/24 10:18 10 mg ONCE ONE Administration Metoprolol Tartrate 25 mg 04/22/24 21:00 04/24/24 09:22 Metoprolol Tartrate 25 Mg Tablet PO 25 mg BID MAXWELL Administration Protocol Multivitamins/Vitamin C 1 tab 04/23/24 09:00 04/24/24 09:22 Multivitamin Tablet PO 1 tab DAILY MAXWELL Administration Ondansetron HCl 4 mg 04/22/24 06:53 04/22/24 06:58 Ondansetron Hcl 4 Mg/2 Ml Vial IVPUSH 04/22/24 06:54 4 mg ONCE ONE Administration Ondansetron HCl 4 mg 04/23/24 11:54 04/23/24 20:38 Ondansetron Hcl 4 Mg/2 Ml Vial IVPUSH 4 mg Q6H PRN Administration Nausea and Vomiting Sodium Chloride 3 ml 04/22/24 16:00 04/24/24 09:23 0.9 % Sodium Chloride Flush 3 Ml Syringe IVFLUSH 3 ml QSHIFT MAXWELL Administration Medical Decision Making Medical Decision Making [facility] Narrative: This is a 88-year-old female, with a history of TIA, who presents emergency department with complaints of dizziness and nausea which started this morning. She states that her took her blood pressure this morning and it was 180s over 120s. She has no history of hypertension. No recent head trauma. She is not on blood thinners. On arrival, she is neurologically intact, with no focal deficits seen on examination. She has an NIH score of 0. Differential diagnoses include orthostatic hypotension, SDH, hypertensive emergency, electrolyte derangement. Patient medicated with labetalol 10 mg IV push as well as Zofran 4 mg IV push. Patient was also seen by my attending physician, Dr. Dasilva, who does not suspect cerebellar infarction at this time. Plan: Labs, EKG, chest x-ray, head CT, EKG, Differential Diagnosis Differential Diagnoses: The differential diagnosis associated with the presentation includes See above Lab Data MDM Lab Attestation statement: I reviewed the patient's lab results. No leukocytosis, stable H&H, chemistry with no electrolyte derangements. 04/23/24 05:35 04/23/24 05:35 Labs: Lab Results 04/22/24 04/22/24 04/22/24 Range/Units 06:20 10:53 12:37 WBC 5.9 (4.8-10.8) X10*3/uL RBC 4.75 (4.20-5.50) X10*6/uL Hgb 13.0 (12.0-16.0) g/dl Hct 39.8 (37.0-47.0) % MCV 83.8 (80.0-98.0) fL MCH 27.4 (27.0-33.0) pg MCHC 32.7 (31.0-35.0) g/dl RDW 14.1 (11.0-16.0) % Plt Count 244 (160-400) X10*3/uL MPV 9.5 (9.4-12.3) fL Immature Gran % (Auto) 0.2 (0.0-0.4) % Neut % (Auto) 59.6 (45-73) % Lymph % (Auto) 28.1 (20-40) % Dukes % (Auto) 6.6 (2-11) % Eos % (Auto) 4.1 H (0-4) % Baso % (Auto) 1.4 (0-2) % Lymph # (Auto) 1.7 (1.2-4.9) X10*3/uL Dukes # (Auto) 0.4 (0.1-1.2) X10*3/uL Eos # (Auto) 0.2 (0.0-0.4) X10*3/uL Baso # (Auto) 0.1 (0.0-0.2) X10*3/uL Abs Immat Gran (auto) 0.01 (0.00-0.03) X10*3/uL Absolute Neuts (auto) 3.5 (2.0-8.3) x10*3/uL Absolute Nucleated RBC 0.000 (0.0-0.012) X10*3/uL Nucleated RBC % (auto) 0.0 (0.0-0.2) /100WBC PT 12.3 (11.1-13.3) SEC INR 1.0 (0.9-1.1) APTT 31.7 (26.0-36.8) SEC Sodium 143 (135-145) mmol/L Potassium 3.7 (3.3-5.1) mmol/L Chloride 109 H (96-108) mmol/L Carbon Dioxide 24 (22-29) mmol/L Anion Gap 14 (12-20) BUN 19 H (9-16) mg/dL Creatinine 0.72 (0.5-1.4) mg/dL Estim Creat Clear Calc 47.5 Estimated GFR > 60 Random Glucose 98 (60-115) mg/dL Calcium 8.7 D (8.4-10.2) mg/dL Magnesium 1.9 (1.6-2.6) mg/dL Total Bilirubin 0.8 (0.0-1.0) mg/dL AST 15 (5-31) U/L ALT 11 (0-31) U/L Alkaline Phosphatase 64 (39-117) U/L Troponin I High Sens 15.6 D 73.8 H* D (<3.5-17.0) ng/L Total Protein 6.2 L (6.5-8.0) g/dL Albumin 3.5 (3.5-5.0) g/dL Urine Color Yellow Urine Appearance Clear Urine pH 8.0 (5.0-9.0) Ur Specific [place] 1.010 (1.005-1.025) Urine Protein Negative (Neg-Trace) mg/dL Urine Glucose (UA) Negative (Negative) mg/dL Urine Ketones Negative (Negative) mg/dL Urine Blood Negative (Negative) Urine Nitrite Negative (Negative) Ur Leukocyte Esterase Trace H (Negative) Urine RBC 0-2 (0-2) /HPF Urine WBC 6-10 H (0-5) /HPF Ur Squamous Epith Cells 0-2 (0-2) /HPF Urine Bacteria None Seen (None Seen) Hyaline Casts 0-2 (0-2) /LPF 04/22/24 Range/Units 13:48 WBC (4.8-10.8) X10*3/uL RBC (4.20-5.50) X10*6/uL Hgb (12.0-16.0) g/dl Hct (37.0-47.0) % MCV (80.0-98.0) fL MCH (27.0-33.0) pg MCHC (31.0-35.0) g/dl RDW (11.0-16.0) % Plt Count (160-400) X10*3/uL MPV (9.4-12.3) fL Immature Gran % (Auto) (0.0-0.4) % Neut % (Auto) (45-73) % Lymph % (Auto) (20-40) % Dukes % (Auto) (2-11) % Eos % (Auto) (0-4) % Baso % (Auto) (0-2) % Lymph # (Auto) (1.2-4.9) X10*3/uL Dukes # (Auto) (0.1-1.2) X10*3/uL Eos # (Auto) (0.0-0.4) X10*3/uL Baso # (Auto) (0.0-0.2) X10*3/uL Abs Immat Gran (auto) (0.00-0.03) X10*3/uL Absolute Neuts (auto) (2.0-8.3) x10*3/uL Absolute Nucleated RBC (0.0-0.012) X10*3/uL Nucleated RBC % (auto) (0.0-0.2) /100WBC PT (11.1-13.3) SEC INR (0.9-1.1) APTT (26.0-36.8) SEC Sodium (135-145) mmol/L Potassium (3.3-5.1) mmol/L Chloride (96-108) mmol/L Carbon Dioxide (22-29) mmol/L Anion Gap (12-20) BUN (9-16) mg/dL Creatinine (0.5-1.4) mg/dL Estim Creat Clear Calc Estimated GFR Random Glucose (60-115) mg/dL Calcium (8.4-10.2) mg/dL Magnesium (1.6-2.6) mg/dL Total Bilirubin (0.0-1.0) mg/dL AST (5-31) U/L ALT (0-31) U/L Alkaline Phosphatase (39-117) U/L Troponin I High Sens 70.0 H* (<3.5-17.0) ng/L Total Protein (6.5-8.0) g/dL Albumin (3.5-5.0) g/dL Urine Color Urine Appearance Urine pH (5.0-9.0) Ur Specific [place] (1.005-1.025) Urine Protein (Neg-Trace) mg/dL Urine Glucose (UA) (Negative) mg/dL Urine Ketones (Negative) mg/dL Urine Blood (Negative) Urine Nitrite (Negative) Ur Leukocyte Esterase (Negative) Urine RBC (0-2) /HPF Urine WBC (0-5) /HPF Ur Squamous Epith Cells (0-2) /HPF Urine Bacteria (None Seen) Hyaline Casts (0-2) /LPF Independent Interpretation I performed an independent interpretation of an: EKG Interpretation: 04/22/2024 06:09AM Normal sinus rhythm at a ventricular rate of 82 beats per minute, PA interval 204. QT QTC 378/441, no ST elevation or depression. 04/22/2024 11:28AM - normal sinus rhythm at a ventricular rate of 74 beats per minute, PA interval 172, QT QTC 410/455, no ST elevation or depression. Radiology Impression Discussion of test interpretation with radiology: I have reviewed the radiologist's reading. Radiologist Impression: CT/CT head/brain wo IV con IMPRESSION: 1. Unchanged age related cerebral atrophy and ventriculomegaly. 2. No intracranial hemorrhage or skull fracture is seen. 3. No evidence of space occupying lesion could be found. 4. 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 5. 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 6. The current plain CT scan of the brain shows no diagnostic evidence of acute cerebral infarction. Dictated By: Callie Meek XR/XR chest 1V IMPRESSION: No acute intrathoracic disease. Incidental findings as described above. Dictated By: Harshad Crow MD Independent Historian Clinical information obtained from an independent historian. History obtained from or confirmed by: Spouse Discharge Plan Discharge Clinical Impression: Dizziness, Elevated troponin Patient Disposition: Admitted As Inpatient Interventions: Admission Worksheet (ED) Last Done: 04/22/24 19:28 Discharge Date/Time: 04/22/24 21:15
[2024-04-22] MEDS: Labetalol HCL 100 MG/20 ML VIAL 10 MG IVPUSH (06:34)
[2024-04-22 06:35] LABS: Basophils Absolute Auto 0.1 X10*3/uL (0.0-0.2); Basophils Percent Auto 1.4 % (0-2); Eosinophils Absolute Auto 0.2 X10*3/uL (0.0-0.4); Eosinophils Percent Auto 4.1 % (0-4); Hematocrit 39.8 % (37.0-47.0); Imm Gran Abs Auto 0.01 X10*3/uL (0.00-0.03); Imm Gran Pct Auto 0.2 % (0.0-0.4); Lymphocytes Absolute Auto 1.7 X10*3/uL (1.2-4.9); Lymphocytes Percent Auto 28.1 % (20-40); Mean Corpuscular HGB Conc 32.7 g/dl (31.0-35.0); Mean Corpuscular Hemoglobin 27.4 pg (27.0-33.0); Mean Corpuscular Volume 83.8 fL (80.0-98.0); Mean Platelet Volume 9.5 fL (9.4-12.3); Monocytes Absolute Auto 0.4 X10*3/uL (0.1-1.2); Monocytes Percent Auto 6.6 % (2-11); Neutrophils Absolute Auto 3.5 x10*3/uL (2.0-8.3); Neutrophils Percent Auto 59.6 % (45-73); Platelet Count 244 X10*3/uL (160-400); Red Blood Count 4.75 X10*6/uL (4.20-5.50); Red Cell Distribution Width 14.1 % (11.0-16.0); White Blood Count 5.9 X10*3/uL (4.8-10.8)
[2024-04-22 06:36] LABS: Prothrombin Time 12.3 SEC (11.1-13.3)
[2024-04-22 06:39] LABS: Partial Thromboplastin Time 31.7 SEC (26.0-36.8)
[2024-04-22 06:42] LABS: Alanine Aminotransferase 11 U/L (0-31); Albumin Level 3.5 g/dL (3.5-5.0); Alkaline Phosphatase 64 U/L (39-117); Anion Gap 14 (12-20); Aspartate Amino Transferase 15 U/L (5-31); Bilirubin Total 0.8 mg/dL (0.0-1.0); Blood Urea Nitrogen 19 mg/dL (9-16); Calcium 8.7 mg/dL (8.4-10.2); Carbon Dioxide 24 mmol/L (22-29); Chloride 109 mmol/L (96-108); Creatinine Clr Calc Pharmacy 47.5; Estimated Glomerular Filt Rate > 60; Glucose Random 98 mg/dL (60-115); Magnesium 1.9 mg/dL (1.6-2.6); Potassium 3.7 mmol/L (3.3-5.1); Sodium 143 mmol/L (135-145); Total Protein 6.2 g/dL (6.5-8.0)
[2024-04-22 06:49] LABS: Troponin-I High Sensitivity 15.6 ng/L (<3.5-17.0)
[2024-04-22] MEDS: ondansetron HCL 4 MG/2 ML VIAL IVPUSH (06:58)
--- NOTE | 2024-04-22 07:02 | PC.NURSE ---
patient resting quietly in bed, respirations equal and unlabored. on tele monitor, normal sinus rhythm. patient medicated per MAR for nausea. alert and oriented x4. VSS. at bedside
--- NOTE | 2024-04-22 07:28 | PC.NURSE ---
patient unable to tolerate orthostatic vitals due to dizziness.
[2024-04-22] MEDS: 0.9 % Sodium Chloride 1,000 ML 999 ML IV (07:43)
[2024-04-22] MEDS: Meclizine HCl 25 MG TABLET PO (08:40)
[2024-04-22] MEDS: Metoclopramide HCl 10 MG/2 ML VIAL IVPUSH (10:51)
[2024-04-22] MEDS: 0.9 % Sodium Chloride 1,000 ML 500 ML IV (10:52)
[2024-04-22 11:23] LABS: Troponin-I High Sensitivity 73.8 ng/L (<3.5-17.0)
--- NOTE | 2024-04-22 11:24 | ECG_ITS ---
Test Reason : retake Blood Pressure : / mmHG Vent. Rate : 074 BPM Atrial Rate : 074 BPM P-R Int : 172 ms QRS Dur : 098 ms QT Int : 410 ms P-R-T Axes : 080 -38 -11 degrees QTc Int : 455 ms Normal sinus rhythm Left axis deviation Abnormal ECG When compared with ECG of 22-APR-2024 06:09, No significant change was found Referred By: Lupe Clark Electronically Signed By:ELBA MITCHELL MD
[2024-04-22 12:46] LABS: Appearance Urine Clear; Color Urine Yellow; Glucose Urine UA Negative (Negative); Leukocyte Esterase Urine Trace (Negative); Nitrite Urine Negative (Negative); UMIC TRIGGER UACC YES; Urine Blood Negative (Negative); Urine Ketones Negative (Negative); Urine Protein Negative (Neg-Trace)
[2024-04-22 12:49] LABS: Bacteria Urine None Seen (None Seen); Hyaline Casts Urine 0-2 /LPF (0-2); RBC Urine 0-2 /HPF (0-2); Squamous Epithelial Cell Urine 0-2 /HPF (0-2); UACC Culture Trigger YES
[2024-04-22] MEDS: diazePAM 10 MG/2 ML CARTRIDGE 5 MG IVPUSH (14:11)
--- NOTE | 2024-04-22 14:22 | PC.NURSE ---
Put patient on oxygen 3LNC as O2 level dropped shortly after giving Valium 5mg IVP. O2 did drop to 88 percent but patient was arousable at the time. PA is in room to do her admission. O2 on the 3 L is 93 percent
--- NOTE | 2024-04-22 14:55 | PHA.MEDREC ---
Addendum entered by Martita Barker RPh 04/22/24 15:12: Reviewed by [facility] Original Note: Pharmacy Consult ? Medication Reconciliation Pharmacy has completed the medication reconciliation. Confirmed medications with patient. Patient confirmed they are taking Dorzolamide-Timolol eye drops 1 drop in each eye bid. She is also on Latanoprost 0.005% drops 1 drop at bedtime. She states she last took her medicine 2 days ago.
--- NOTE | 2024-04-22 15:09 | PC.NURSE ---
Patient is now off oxygen as saturation is now 96 percent on RA, provider is aware. is at bedside. patient is now more awake and alert.
--- NOTE | 2024-04-22 15:17 | PM.IMHP ---
History of Present Illness Date of Service: 04/22/24 Attending physician on admission: Rosalinda Ardon Chief Complaint: dizziness 88-year-old female, with a history of TIA, who presents emergency department via EMS with complaints of high blood pressure and dizziness upon awakening this morning. Patient reports that upon wakening this morning she went to get up to use the bathroom and suddenly felt profoundly dizzy. She felt as though she was on a boat as well as the room was spinning around her and very unsteady. Since then describes more a positional lightheadedness. Denies worsening of symptoms with head movements. She called out to her who was in the other room out of approximately 5:15AM and patient then had her blood pressure taken by her and it was 180/120. She states that they then called 911 at that time. Her believes that she has not been drinking an adequate amount of water lately. She denies any headaches, chest pain, shortness for breath. No fevers or chills. No recent illness. On arrival, patient hypertensive to 181/104, vital signs otherwise stable. She was given 10 mg IV labetalol and blood pressure on admission 128/84. She was given a dose of 5 mg diazepam and subsequently developed hypoxia to 88% was placed on 3 L supplemental O2. Unfortunately, patient also very sedated on exam secondary to medication and unable to participate in neuro exam and provide much history. Hematology studies unremarkable. Renal function and electrolyte levels normal. Initial troponin 15.6, repeat 73.8, repeat 70.0. Urinalysis unremarkable. 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 CXR negative for acute cardiopulmonary disease. In addition to labetalol, has also been given meclizine, Reglan, ondansetron, IV NS, and diazepam. [facility] Medical History History of TIA (transient ischemic attack) Anxiety Social History Patient Tobacco Use Status: Never used Tobacco Smoked in Last 30 Days: No Advance Directives: Yes Advance Directives on File: Yes Advance Directives Date on File: 09/26/22 Do you have a plan to hurt others: No Plan Meds Allergies Allergy/AdvReac Type Severity Reaction Status Date / Time bacitracin [BACITRACIN] Allergy Intermediate BLISTERS Verified 04/22/24 18:22 alendronate sodium Allergy Unknown TONGUE Verified 04/22/24 18:22 [From FOSAMAX] SWELLING ciprofloxacin [CIPROFLOXACIN] Allergy Unknown TONGUE Verified 04/22/24 18:22 SWELLING, swelling colesevelam [From WELCHOL] Allergy Unknown TONGUE Verified 04/22/24 18:22 SWELLING metronidazole Allergy Unknown TONGUE Verified 04/22/24 18:22 SWELLING niacin [NIACIN] Allergy Unknown TONGUE Verified 04/22/24 18:22 SWELLING, swelling simvastatin [SIMVASTATIN] Allergy Unknown TONGUE Verified 04/22/24 18:22 SWELLING, swelling SPECIAL SURGICAL DRESSING Allergy Intermediate BLISTERS Uncoded 04/22/24 18:22 flosamax Allergy Unknown swelling Uncoded 04/22/24 18:22 meronidacole Allergy Unknown swelling Uncoded 04/22/24 18:22 STEROIDS Allergy Unknown PRESSURE Uncoded 04/22/24 18:22 IN EYE Home Medications ?Medication ?Instructions ?Recorded ?Confirmed ?Last Taken ?Type aspirin 81 mg tablet,delayed 81 mg PO DAILY 04/22/24 04/22/24 04/20/24 History release dorzolamide 22.3 mg-timolol 6.8 1 drp ophthalmic (eye) Q12H 04/22/24 04/22/24 04/20/24 History mg/mL eye drops latanoprost 0.005 % eye drops 1 drp ophthalmic (eye) BEDTIME 04/22/24 04/22/24 04/20/24 History multivitamin 1 tab PO DAILY 04/22/24 04/22/24 04/20/24 History Physical Exam Vital Signs and Narrative: Vital Signs: Last Vital Signs Temp 98.5 F 04/22/24 12:13 Pulse 90 04/22/24 14:24 Resp 11 L 04/22/24 14:24 BP 128/84 04/22/24 14:24 Pulse Ox 93 04/22/24 14:24 O2 Del Method Nasal Cannula 04/22/24 14:24 O2 Flow Rate 3 04/22/24 14:24 BMI result Body Mass Index 24.1 Constitutional - Awake and Alert, No apparent distress Eyes - PERRLA, EOMI Cardiovascular - S1S2, RRR, No edema Respiratory - Normal lung expansion, Normal respiratory effort, No respiratory distress, CTA bilaterally Gastrointestinal - NT / ND; +BS; No rebound or guarding Extremities - no calf tenderness bilaterally, no swelling Skin - Warm/Dry Neurological - Alert & oriented x3, very lethargic following valium administration unable to participate in neuro exam Psychological - Appropriate affect Results Labs 04/22/24 06:20 04/22/24 06:20 Labs: Laboratory Results - last 24 hr 04/22/24 04/22/24 04/22/24 06:20 10:53 12:37 MCV 83.8 MCH 27.4 MCHC 32.7 RDW 14.1 Plt Count 244 MPV 9.5 Immature Gran % (Auto) 0.2 Neut % (Auto) 59.6 Lymph % (Auto) 28.1 [place] % (Auto) 6.6 Eos % (Auto) 4.1 H Baso % (Auto) 1.4 Lymph # (Auto) 1.7 [place] # (Auto) 0.4 Eos # (Auto) 0.2 Baso # (Auto) 0.1 Abs Immat Gran (auto) 0.01 Absolute Neuts (auto) 3.5 Absolute Nucleated RBC 0.000 Nucleated RBC % (auto) 0.0 PT 12.3 INR 1.0 APTT 31.7 Anion Gap 14 Estim Creat Clear Calc 47.5 Estimated GFR > 60 Random Glucose 98 Calcium 8.7 D Magnesium 1.9 Total Bilirubin 0.8 AST 15 ALT 11 Alkaline Phosphatase 64 Troponin I High Sens 15.6 D 73.8 H* D Total Protein 6.2 L Albumin 3.5 Urine Color Yellow Urine Appearance Clear Urine pH 8.0 Ur Specific [place] 1.010 Urine Protein Negative Urine Glucose (UA) Negative Urine Ketones Negative Urine Blood Negative Urine Nitrite Negative Ur Leukocyte Esterase Trace H Urine RBC 0-2 Urine WBC 6-10 H Ur Squamous Epith Cells 0-2 Urine Bacteria None Seen Hyaline Casts 0-2 04/22/24 13:48 MCV MCH MCHC RDW Plt Count MPV Immature Gran % (Auto) Neut % (Auto) Lymph % (Auto) [place] % (Auto) Eos % (Auto) Baso % (Auto) Lymph # (Auto) [place] # (Auto) Eos # (Auto) Baso # (Auto) Abs Immat Gran (auto) Absolute Neuts (auto) Absolute Nucleated RBC Nucleated RBC % (auto) PT INR APTT Anion Gap Estim Creat Clear Calc Estimated GFR Random Glucose Calcium Magnesium Total Bilirubin AST ALT Alkaline Phosphatase Troponin I High Sens 70.0 H* Total Protein Albumin Urine Color Urine Appearance Urine pH Ur Specific [place] Urine Protein Urine Glucose (UA) Urine Ketones Urine Blood Urine Nitrite Ur Leukocyte Esterase Urine RBC Urine WBC Ur Squamous Epith Cells Urine Bacteria Hyaline Casts Imaging Radiologist's Impressions: Impressions Chest X-Ray 04/22/24 06:25 IMPRESSION: No acute intrathoracic disease. Incidental findings as described above. Head CT 04/22/24 06:30 IMPRESSION: 1. Unchanged age related cerebral atrophy and ventriculomegaly. 2. No intracranial hemorrhage or skull fracture is seen. 3. No evidence of space occupying lesion could be found. 4. 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 5. 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 6. The current plain CT scan of the brain shows no diagnostic evidence of acute cerebral infarction. Assessment and Plan (1) Elevated troponin: Status: Acute (2) Dizziness: Status: Acute Plan 88-year-old female, with a history of TIA to be observed for lightheadedness with elevated blood pressures and troponin #Lightheadedness -likely secondary to elevated blood pressures/L heart strain -head ct negtive for acute intracranial abnormality -unable to perform orthostatics due to pt symptoms and ultimate refusal -Hold on further IVF -manage blood pressures -monitor on telemetry -cardiology consult -echo #Elevated trops -due to htn with suspect L heart strain -echo -cardiology consult -monitor tele #HTN -add metoprolol 25mg bid -monitor bps dvt prophylaxis- heparin full code Quality Stroke Does the patient have a stroke diagnosis?: No VTE Prior VTE?: No VTE Risk Level:: Medical - moderate - high VTE Device Contraindication: Treatment Not Indicated VTE Drug Contraindication: N/A - Med Ordered
[2024-04-22] MEDS: Heparin Sodium,Porcine 5,000 UNIT/ML VIAL 5000 UNIT SUBCUT (18:22)
[2024-04-22] MEDS: 0.9 % Sodium Chloride Flush 3 ML SYRINGE IVFLUSH ×2 (18:23→22:01)
[2024-04-22 20:30] LABS: Troponin-I High Sensitivity 64.3 ng/L (<3.5-17.0)
[2024-04-22] MEDS: Metoprolol Tartrate 25 MG TABLET PO (22:00)
[2024-04-23] VITALS (9 sets, daily range): BP systolic 108–166; BP diastolic 71–83; PULSE 67–79; RESP 18–20; TEMP 36–36.6; O2SAT 95–97
[2024-04-23] MEDS: Heparin Sodium,Porcine 5,000 UNIT/ML VIAL 5000 UNIT SUBCUT ×2 (05:05→17:26)
[2024-04-23 06:13] LABS: MANUAL DIFF FLAG NO
[2024-04-23 06:34] LABS: Anion Gap 14 (12-20); Blood Urea Nitrogen 13 mg/dL (9-16); Calcium 8.9 mg/dL (8.4-10.2); Carbon Dioxide 24 mmol/L (22-29); Chloride 109 mmol/L (96-108); Creatinine Clr Calc Pharmacy 56.1; Estimated Glomerular Filt Rate > 60; Glucose Random 86 mg/dL (60-115); Potassium 3.7 mmol/L (3.3-5.1); Sodium 143 mmol/L (135-145)
[2024-04-23 06:44] LABS: Basophils Absolute Auto 0.1 X10*3/uL (0.0-0.2); Basophils Percent Auto 0.9 % (0-2); Eosinophils Absolute Auto 0.1 X10*3/uL (0.0-0.4); Hematocrit 42.8 % (37.0-47.0); Hemoglobin 13.7 g/dl (12.0-16.0); Imm Gran Abs Auto 0.02 X10*3/uL (0.00-0.03); Imm Gran Pct Auto 0.3 % (0.0-0.4); Lymphocytes Absolute Auto 1.2 X10*3/uL (1.2-4.9); Lymphocytes Percent Auto 15.8 % (20-40); Mean Corpuscular Hemoglobin 27.3 pg (27.0-33.0); Mean Corpuscular Volume 85.3 fL (80.0-98.0); Mean Platelet Volume 9.8 fL (9.4-12.3); Monocytes Absolute Auto 0.4 X10*3/uL (0.1-1.2); Monocytes Percent Auto 5.7 % (2-11); Neutrophils Absolute Auto 5.9 x10*3/uL (2.0-8.3); Neutrophils Percent Auto 76.3 % (45-73); Platelet Count 263 X10*3/uL (160-400); Red Blood Count 5.02 X10*6/uL (4.20-5.50); Red Cell Distribution Width 14.1 % (11.0-16.0); White Blood Count 7.8 X10*3/uL (4.8-10.8)
--- NOTE | 2024-04-23 07:00 | CA_ITS ---
Transthoracic Echocardiogram Patient (Last, First, Middle): Myra Aguillon, Gender: Female Date of : 1935 Age: 88 Procedure Date: 04/23/2024 Procedure Type: Transthoracic Echocardiogram Location: [facility] [place] Height: 162.56 cm Weight: 65.77 kg BSA: 1.71 m2 Heart Rate: 92 bpm BP: 142 / 73 mmHg Explosive Operator Bomb: SB Referring MD: Rosetta BRISENO Lip Cutter And Scorer: Fredo Amor MD Symptoms: elevated bps, elevated trops ?L heart strain Study Quality: Adequate ECG Rhythm: Sinus Conclusions: - 1. Normal LV ejection fraction 60 65% with impaired relaxation filling pattern 2. Mildly dilated left atrium 3. Cardiac valvular Dopplers within normal limits 4. Upper limits of normal ascending aortic size 5. No gross pericardial effusion Findings Left Ventricle Normal left ventricular size, thickness, and systolic function. The visually estimated ejection fraction is between 60-65%. Spectral Doppler is indicative of an impaired relaxation filling pattern. E/E prime ratio is between 8 and 15 consistent with indeterminate filling pressures. Right Ventricle Normal right ventricular cavity size and systolic function. Atria The left atrium is mildly dilated. Interatrial shunt cannot be excluded. The right atrium is normal in size. Aortic Valve Normal aortic valve structure and function. There is no aortic valve stenosis. There is no aortic valve regurgitation. Mitral Valve There is mild anterior and posterior mitral leaflet thickening. There is mild mitral annular calcification. There is trace mitral valve regurgitation. There is no mitral valve stenosis. Pulmonic Valve The pulmonic valve was not well visualized. Tricuspid Valve Likely normal tricuspid valve structure and function. Tricuspid regurgitation envelope is inadequate for calculation of right ventricular systolic pressure. Normal right atrial pressure. Great Vessels The pulmonary artery was not well visualized. Venous The inferior vena cava is normal in size and collapses greater than 50% with inspiration. Pericardium/Pleural There is no evidence of pericardial effusion. Prior Study Comparison No prior study available for comparison. Measurements 2D Linear Measurements IVSd: 1.36 0.6-0.9/0.6-1.0 cm LVIDd: 4.81 3.9-5.3/4.2-5.9 cm LVIDd Index: 2.81 2.4-3.2/2.2-3.1 cm/m2 LVIDs: 3.30 2.0-3.6 cm LVPWd: 0.86 0.7-1.1 cm LA Diam: 4.20 2.7-3.8/3.0-4.0 cm LAIDs Index: 2.46 1.5-2.3 cm/m2 LV Mass: 245.59 67-162/88-224 g LV Mass Index: 143.62 43-95/49-115 g/m2 LVOT Diam: 2.10 3.0+(-)1.3 cm 2D Systolic Function EF 4C: 64.40 >55% EF 2C: 64.20 >55% EF BiP: 64.50 >55% Mitral Valve MV Pk E: 0.66 MV PK A: 0.81 MV Decel Time: 194.00 E/A: 0.80 E'Lateral: 7.51 E'Medial: 4.79 E/E' Med: 13.70 E/E' Lat: 8.70 PHT: 57.00 MVA PHT: 3.86 Decel Fleming: 3.38 Aortic Valve AoV Pk Steven: 1.16 AoV Pk Grad: 5.00 RICO: 3.37 LVOT LVOT Pk Steven: 0.97 LVOT Mn Steven: 0.75 LVOT VTI: 0.22 LVOT Pk Grad: 4.00 LVOT Mn Grad: 2.00 LVOT Diam: 2.10 LVOT Area: 3.46 Diastolic Function MV Pk E: 0.66 MV Pk A: 0.81 E/A: 0.80 E'Medial: 4.79 E/E' Med: 13.70 E' Laterial: 7.51 E/E' Lat: 8.70 Right Ventricle TVS' Steven: 11.90 Tricuspid Valve RA Press: 3.00 Great Vessels Aorta Sinus of Valsalva: 3.40 2.0-3.5 cm Ao Asc: 3.60 2.1-3.4 cm Pulmonary Valve PV Pk Steven: 0.66 Peak PV Grad: 2.00 Updated in Other Vendor System with Status of Final Fredo Amor MD electronically signed on 04/23/2024 12:27:24 PM with status of Final
--- NOTE | 2024-04-23 08:23 | MHC.CM.PN ---
CM met with Patient at bedside and addressed ALFARO with her, providing Patient with the original and a copy has been placed on the chart. Patient lives in a house with her /HCP/Murray and she uses both a cane and a walker to assist with mobility. 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 CM has initiated and will follow for dc planning. PCP is Dr. Nilesh Ruiz.
[2024-04-23] MEDS: Metoprolol Tartrate 25 MG TABLET PO ×2 (08:47→20:38)
[2024-04-23] MEDS: Aspirin Enteric Coated 81 MG TABLET.DR PO (08:47)
[2024-04-23] MEDS: 0.9 % Sodium Chloride Flush 3 ML SYRINGE IVFLUSH ×3 (09:07→20:38)
[2024-04-23] MEDS: Multivitamin TABLET 1 TAB PO (09:07)
--- NOTE | 2024-04-23 11:20 | P.CNNE_ITS ---
History of Present Illness Data of Consult Service Date: 04/23/24 Primary Care Provider: Nilesh Ruiz MD [facility] Reason for consult: Dizziness This is a 88-year-old female, with a history of TIA, who presented to the ED with complaints of high blood pressure and dizziness upon awakening this morning. Patient reports that upon wakening this morning she went to get up to use the bathroom and suddenly felt profoundly dizzy. She felt as though she was on a boat as well as the room was spinning around her and felt very unsteady. Since then, she describes more of a positional lightheadedness. Denies worsening of symptoms with head movements. She called out to her who was in the other room out of approximately 5:15AM and patient then had her blood pressure taken by her and it was 180/120. She states that they then called 911 at that time. Her believes that she has not been drinking an adequate amount of water lately. She denies any headaches, chest pain, shortness for breath. No fevers or chills. No recent illness. On arrival, patient was hypertensive to 181/104, vital signs otherwise stable. She was given 10 mg IV labetalol and blood pressure on admission 128/84. She was given a dose of 5 mg diazepam and subsequently developed hypoxia to 88% was placed on [address] brain showed unchanged age related cerebral atrophy and ventriculomegaly. 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 She feels more nauseated today following vestibular therapy. 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 On examination she is alert and oriented x3. Cranial nerves II through XII are normal with no nystagmus. She has partial Left visual field defect. There is no drift of the upper extremities. Speech is normal. Subtle droop of the left angle of the mouth. Strength is 4+/5 diffusely. Rapid alternating movements and [id number] test was performed well. Plantar response are flexor Impression: vertigo, probably of peripheral vestibular origin with a small possibility of a vertebrobasilar stroke in which is not visible on the CT. 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 She has multiple stroke risk factors and previous history of stroke.and small vessel disease. Recommendation: control of blood pressure. Symptomatic treatment of vertigo with meclizine 25 mg 3 times a day and ondansetron 4 mg a day. Physical therapy for gait and balance. Would hold off vestibular therapy since it making her feel worse. Continue aspirin and statins. [facility] Past Medical History Medical History History of TIA (transient ischemic attack) Anxiety Social History Social History Household Members: Spouse Housing: House Do you presently have visiting nurse or other home services: No Patient Tobacco Use Status: Never used Tobacco Advance Directives Date on File: 09/26/22 service: No Meds Allergies Allergy/AdvReac Type Severity Reaction Status Date / Time bacitracin [BACITRACIN] Allergy Intermediate BLISTERS Verified 04/22/24 18:22 alendronate sodium Allergy Unknown TONGUE Verified 04/22/24 18:22 [From FOSAMAX] SWELLING ciprofloxacin [CIPROFLOXACIN] Allergy Unknown TONGUE Verified 04/22/24 18:22 SWELLING, swelling colesevelam [From WELCHOL] Allergy Unknown TONGUE Verified 04/22/24 18:22 SWELLING metronidazole Allergy Unknown TONGUE Verified 04/22/24 18:22 SWELLING niacin [NIACIN] Allergy Unknown TONGUE Verified 04/22/24 18:22 SWELLING, swelling simvastatin [SIMVASTATIN] Allergy Unknown TONGUE Verified 04/22/24 18:22 SWELLING, swelling SPECIAL SURGICAL DRESSING Allergy Intermediate BLISTERS Uncoded 04/22/24 18:22 flosamax Allergy Unknown swelling Uncoded 04/22/24 18:22 meronidacole Allergy Unknown swelling Uncoded 04/22/24 18:22 STEROIDS Allergy Unknown PRESSURE Uncoded 04/22/24 18:22 IN EYE Active Medications: Current Medications Acetaminophen (Acetaminophen 325 Mg Tablet) 650 mg PO Q6H PRN PRN Reason: Pain, Mild (Pain Scale 1-3), fever or headache Aspirin (Aspirin Enteric Coated 81 Mg Tablet.) 81 mg PO DAILY [facility] Last Admin: 04/23/24 08:47 Dose: 81 mg Calcium Carbonate (Calcium Carbonate 750 Mg Tab.Chew) 750 mg PO Q4H PRN PRN Reason: Heartburn Dorzolamide/Timolol (Dorzolamide/Timolo 2.23%/0.68% 10 Ml Drbtl) 1 drop EYE- BOTH BID [facility] Last Admin: 04/22/24 22:02 Dose: Not Given Heparin Sodium (Porcine) (Heparin Sodium,Porcine 5,000 Unit/Ml Vial) 5,000 unit SUBCUT Q12H [facility] Last Admin: 04/23/24 05:05 Dose: 5,000 unit Latanoprost (Latanoprost 0.005 % Ophth Amarilys 2.5 Ml Drops) 1 drop EYE-BOTH BEDTIME [facility] Last Admin: 04/22/24 22:02 Dose: Not Given Magnesium Hydroxide (Milk Of Magnesia 30 Ml Oral.Susp) 30 ml PO DAILY PRN PRN Reason: Constipation Meclizine HCl (Meclizine Hcl 25 Mg Tablet) 25 mg PO Q6H PRN PRN Reason: Dizziness Melatonin (Melatonin 3 Mg Tablet) 6 mg PO BEDTIME PRN PRN Reason: Insomnia Metoprolol Tartrate (Metoprolol Tartrate 25 Mg Tablet) 25 mg PO BID [facility]; Protocol Last Admin: 04/23/24 08:47 Dose: 25 mg Multivitamins/Vitamin C (Multivitamin Tablet) 1 tab PO DAILY [facility] Last Admin: 04/23/24 09:07 Dose: 1 tab Sodium Chloride (0.9 % Sodium Chloride Flush 3 Ml Syringe) [facility] Last Admin: 04/23/24 09:07 Dose: 3 ml Home Medications ?Medication ?Instructions ?Recorded ?Confirmed ?Last Taken ?Type aspirin 81 mg tablet,delayed 81 mg PO DAILY 04/22/24 04/22/24 04/20/24 History release dorzolamide 22.3 mg-timolol 6.8 1 drp ophthalmic (eye) Q12H 04/22/24 04/22/24 04/20/24 History mg/mL eye drops latanoprost 0.005 % eye drops 1 drp ophthalmic (eye) BEDTIME 04/22/24 04/22/24 04/20/24 History multivitamin 1 tab PO DAILY 04/22/24 04/22/24 04/20/24 History Physical Exam 2 Vital Signs: Vital Signs: Last Vital Signs Temp 97.2 F 04/23/24 07:49 Pulse 78 04/23/24 09:12 Resp 20 04/23/24 07:49 BP 135/71 04/23/24 09:12 Pulse Ox 95 04/23/24 09:12 O2 Del Method Room Air 04/23/24 07:49 O2 Flow Rate 3 04/22/24 14:24 BMI result Body Mass Index 24.9 Results Labs 04/23/24 05:35 04/23/24 05:35 Labs: Short CBC 04/23/24 Range/Units 05:35 WBC 7.8 (4.8-10.8) X10*3/uL Hgb 13.7 (12.0-16.0) g/dl Hct 42.8 (37.0-47.0) % Plt Count 263 (160-400) X10*3/uL BMP 04/23/24 05:35 Sodium 143 Potassium 3.7 Chloride 109 H Carbon Dioxide 24 BUN 13 Creatinine 0.66 Calcium 8.9 Urine 04/22/24 Range/Units 12:37 Urine Color Yellow Urine Appearance Clear Urine pH 8.0 (5.0-9.0) Ur Specific [place] 1.010 (1.005-1.025) Urine Protein Negative (Neg-Trace) mg/dL Urine Glucose (UA) Negative (Negative) mg/dL Microbiology Microbiology Results: Microbiology 04/22/24 Unknown Urine clean catch - Clean Catch Midstream Urine Culture - Final Procedures Date of Service Date of Service: 04/23/24
--- NOTE | 2024-04-23 11:21 | P.CONCA_ITS ---
History of Present Illness History of Present Illness Date of Service: 04/23/24 Requesting physician: Rosalinda Ardon Consult reason: other (Hypertensive urgency) Chief complaint: hypertensive urgency, elevated trops Narrative: I was consulted to see Myra in cardiology consultation today for acute onset dizziness and significantly elevated blood pressure. She is a pleasant 88-year-old woman who lives independently at home in still manages her own affairs and goes grocery shopping with no prior significant cardiovascular issues including no history of hypertension. For about a week patient says when she is changes position especially either laying in bed or when she sits up in 1 particular position especially in the left side. She came to the hospital yesterday was noted to have significantly elevated blood pressure. She said yesterday with the symptoms of positional dizziness/spinning of the world she had significant symptoms of nausea. No chest pain. Blood pressure checked at home was significantly elevated and therefore she came to the emergency room. In the emergency room she was given 10 mg of labetalol and blood pressure improved significantly. She also given some diazepam. Since then she had a CT scan of her head which showed multiple old infarcts. Patient says she has never known to have prior stroke. She is currently not on any medication including aspirin or statins. She had minimally elevated troponins. Cardiology consult was sought because of that. Review of Systems 2 Constitutional: Constitutional: Reports no additional constitutional complaints Eyes: Eyes: Reports no additional eye complaints ENT: Reports vertigo and Reports disequilibrium Cardiovascular: Cardiovascular: Denies chest pain, Denies Loss of Consciousness, Denies palpitations and Denies dyspnea Respiratory: Respiratory: Denies dyspnea Gastrointestinal: Gastrointestinal: Reports nausea Musculoskeletal: Musculoskeletal: Reports no additional musculoskeletal complaints Neurologic: Reports vertigo and Reports disequilibrium Endocrine: Endocrine: Denies palpitations [facility] Past Medical History Medical History History of TIA (transient ischemic attack) Anxiety Social History Social History Household Members: Spouse Housing: House Do you presently have visiting nurse or other home services: No Patient Tobacco Use Status: Never used Tobacco Advance Directives Date on File: 09/26/22 service: No Meds Allergies Allergy/AdvReac Type Severity Reaction Status Date / Time bacitracin [BACITRACIN] Allergy Intermediate BLISTERS Verified 04/22/24 18:22 alendronate sodium Allergy Unknown TONGUE Verified 04/22/24 18:22 [From FOSAMAX] SWELLING ciprofloxacin [CIPROFLOXACIN] Allergy Unknown TONGUE Verified 04/22/24 18:22 SWELLING, swelling colesevelam [From WELCHOL] Allergy Unknown TONGUE Verified 04/22/24 18:22 SWELLING metronidazole Allergy Unknown TONGUE Verified 04/22/24 18:22 SWELLING niacin [NIACIN] Allergy Unknown TONGUE Verified 04/22/24 18:22 SWELLING, swelling simvastatin [SIMVASTATIN] Allergy Unknown TONGUE Verified 04/22/24 18:22 SWELLING, swelling [employer] Allergy Intermediate BLISTERS Uncoded 04/22/24 18:22 flosamax Allergy Unknown swelling Uncoded 04/22/24 18:22 meronidacole Allergy Unknown swelling Uncoded 04/22/24 18:22 STEROIDS Allergy Unknown PRESSURE Uncoded 04/22/24 18:22 IN EYE Active Medications: Current Medications Acetaminophen (Acetaminophen 325 Mg Tablet) 650 mg PO Q6H PRN PRN Reason: Pain, Mild (Pain Scale 1-3), fever or headache Aspirin (Aspirin Enteric Coated 81 Mg Tablet.Dr) 81 mg PO DAILY [facility] Last Admin: 04/23/24 08:47 Dose: 81 mg Calcium Carbonate (Calcium Carbonate 750 Mg Tab.Chew) 750 mg PO Q4H PRN PRN Reason: Heartburn Dorzolamide/Timolol (Dorzolamide/Timolo 2.23%/0.68% 10 Ml Drbtl) 1 drop EYE- BOTH BID [facility] Last Admin: 04/22/24 22:02 Dose: Not Given Heparin Sodium (Porcine) (Heparin Sodium,Porcine 5,000 Unit/Ml Vial) 5,000 unit SUBCUT Q12H [facility] Last Admin: 04/23/24 05:05 Dose: 5,000 unit Latanoprost (Latanoprost 0.005 % Ophth Amarilys 2.5 Ml Drops) 1 drop EYE-BOTH BEDTIME [facility] Last Admin: 04/22/24 22:02 Dose: Not Given Magnesium Hydroxide (Milk Of Magnesia 30 Ml Oral.Susp) 30 ml PO DAILY PRN PRN Reason: Constipation Meclizine HCl (Meclizine Hcl 25 Mg Tablet) 25 mg PO Q6H PRN PRN Reason: Dizziness Melatonin (Melatonin 3 Mg Tablet) 6 mg PO BEDTIME PRN PRN Reason: Insomnia Metoprolol Tartrate (Metoprolol Tartrate 25 Mg Tablet) 25 mg PO BID [facility]; Protocol Last Admin: 04/23/24 08:47 Dose: 25 mg Multivitamins/Vitamin C (Multivitamin Tablet) 1 tab PO DAILY [facility] Last Admin: 04/23/24 09:07 Dose: 1 tab Sodium Chloride (0.9 % Sodium Chloride Flush 3 Ml Syringe) 3 ml IVFLUSH QSHIFT [facility] Last Admin: 04/23/24 09:07 Dose: 3 ml Home Medications ?Medication ?Instructions ?Recorded ?Confirmed ?Last Taken ?Type aspirin 81 mg tablet,delayed 81 mg PO DAILY 04/22/24 04/22/24 04/20/24 History release dorzolamide 22.3 mg-timolol 6.8 1 drp ophthalmic (eye) Q12H 04/22/24 04/22/24 04/20/24 History mg/mL eye drops latanoprost 0.005 % eye drops 1 drp ophthalmic (eye) BEDTIME 04/22/24 04/22/24 04/20/24 History multivitamin 1 tab PO DAILY 04/22/24 04/22/24 04/20/24 History Physical Exam 2 Vital Signs: Vital Signs: Last Vital Signs Temp 97.2 F 04/23/24 07:49 Pulse 78 04/23/24 09:12 Resp 20 04/23/24 07:49 BP 135/71 04/23/24 09:12 Pulse Ox 95 04/23/24 09:12 O2 Del Method Room Air 04/23/24 07:49 O2 Flow Rate 3 04/22/24 14:24 BMI result Body Mass Index 24.9 Const: General: cooperative, comfortable, no acute distress, alert and awake Nutritional Appearance: average body habitus Orientation/consciousness: p atient oriented x3 Limitations: no limitations HEENT: Head: Yes normocephalic and Yes atraumatic Neck: Neck: Yes trachea midline, Yes supple and Yes no JVD Resp: Effort & Inspection: normal respiratory effort Auscultation: clear to auscultation bilaterally Cardio: Jugular venous distension: no JVD Palpation: normal PMI Rate: r egular rate Rhythm: regular rhythm Heart sounds: S1 normal heart sound present, S2 normal heart sound present, no click, no gallops and no rubs GI: Auscultation: normal bowel sounds Skin: General skin exam: no rashes or lesions noted Neuro: General: patient oriented x3 and no focal motor deficits Extrem: General: Yes no clubbing, cyanosis or edema Objective Labs and Meds 04/23/24 05:35 04/23/24 05:35 Lab results: Laboratory Results - last 24 hr 04/22/24 04/22/24 04/22/24 10:53 12:37 13:48 WBC RBC Hgb Hct MCV MCH MCHC RDW Plt Count MPV Immature Gran % (Auto) Neut % (Auto) Lymph % (Auto) [place] % (Auto) Eos % (Auto) Baso % (Auto) Lymph # (Auto) [place] # (Auto) Eos # (Auto) Baso # (Auto) Abs Immat Gran (auto) Absolute Neuts (auto) Absolute Nucleated RBC Nucleated RBC % (auto) Sodium Potassium Chloride Carbon Dioxide Anion Gap BUN Creatinine Estim Creat Clear Calc Estimated GFR Random Glucose Calcium Troponin I High Sens 73.8 H* D 70.0 H* Urine Color Yellow Urine Appearance Clear Urine pH 8.0 Ur Specific [place] 1.010 Urine Protein Negative Urine Glucose (UA) Negative Urine Ketones Negative Urine Blood Negative Urine Nitrite Negative Ur Leukocyte Esterase Trace H Urine RBC 0-2 Urine WBC 6-10 H Ur Squamous Epith Cells 0-2 Urine Bacteria None Seen Hyaline Casts 0-2 04/22/24 04/23/24 19:56 05:35 WBC 7.8 RBC 5.02 Hgb 13.7 Hct 42.8 MCV 85.3 MCH 27.3 MCHC 32.0 RDW 14.1 Plt Count 263 MPV 9.8 Immature Gran % (Auto) 0.3 Neut % (Auto) 76.3 H Lymph % (Auto) 15.8 L [place] % (Auto) 5.7 Eos % (Auto) 1.0 Baso % (Auto) 0.9 Lymph # (Auto) 1.2 [place] # (Auto) 0.4 Eos # (Auto) 0.1 Baso # (Auto) 0.1 Abs Immat Gran (auto) 0.02 Absolute Neuts (auto) 5.9 Absolute Nucleated RBC 0.000 Nucleated RBC % (auto) 0.0 Sodium 143 Potassium 3.7 Chloride 109 H Carbon Dioxide 24 Anion Gap 14 BUN 13 Creatinine 0.66 Estim Creat Clear Calc 56.1 Estimated GFR > 60 Random Glucose 86 Calcium 8.9 Troponin I High Sens 64.3 H* Urine Color Urine Appearance Urine pH Ur Specific [place] Urine Protein Urine Glucose (UA) Urine Ketones Urine Blood Urine Nitrite Ur Leukocyte Esterase Urine RBC Urine WBC Ur Squamous Epith Cells Urine Bacteria Hyaline Casts Assessment and Plan (1) Hypertensive urgency: Status: Acute Hypertensive urgency most likely related to acute medical illness with vertigo. Central causes of vertigo need to be ruled out. Consider posterior for side imaging. She has prior evidence of strokes in cerebral hemispheres. Blood pressure is now improved and normalized. Troponin elevation most likely due to subendocardial strain from significantly elevated blood pressure. Consider echocardiogram. Agree with metoprolol therapy. Advised to monitor blood pressure at home when discharge on a regular basis. Treat vertigo. Will sign of the case and follow-up as need be Procedures Date of Service Date of Service: 04/23/24
[2024-04-23] MEDS: ondansetron HCL 4 MG/2 ML VIAL IVPUSH ×2 (11:57→20:38)
[2024-04-23] MEDS: Meclizine HCl 25 MG TABLET PO ×2 (12:19→20:38)
--- NOTE | 2024-04-23 15:37 | HO.PM.IMPN ---
Subjective Subjective Date of Service: 04/23/24 Interval History: dizziness Review of Systems denies any chest pain still dizziness -says unable to sit up no no headache or blurry vision or weakness numbness. Physical Exam Vital Signs: Vital Signs: Last Vital Signs Temp 96.8 F 04/23/24 11:41 Pulse 69 04/23/24 11:41 Resp 20 04/23/24 11:41 BP 127/80 04/23/24 11:41 Pulse Ox 95 04/23/24 11:41 O2 Del Method Room Air 04/23/24 11:41 O2 Flow Rate 3 04/22/24 14:24 BMI result Body Mass Index 24.9 Appearance: Alert.? Oriented X3.? cvs: [id number], [id number]. res: clear to auscultation ,no rhonchii or wheezing abd: no rebound or guarding ,nt, bs present. ext pulses present , no cyanosis . neuro: nonfocal, still has dizziness Objective Data Active Medications Acetaminophen (Acetaminophen 325 Mg Tablet) 650 mg PO Q6H PRN PRN Reason: Pain, Mild (Pain Scale 1-3), fever or headache Aspirin (Aspirin Enteric Coated 81 Mg Tablet.Dr) 81 mg PO DAILY [facility] Last Admin: 04/23/24 08:47 Dose: 81 mg Documented By: GLENNA Calcium Carbonate (Calcium Carbonate 750 Mg Tab.Chew) 750 mg PO Q4H PRN PRN Reason: Heartburn Dorzolamide/Timolol (Dorzolamide/Timolo 2.23%/0.68% 10 Ml Drbtl) 1 drop EYE-BOTH BID [facility] Last Admin: 04/23/24 13:35 Dose: Not Given Documented By: GLENNA Non-Admin Reason: contacted pharm Heparin Sodium (Porcine) (Heparin Sodium,Porcine 5,000 Unit/Ml Vial) 5,000 unit SUBCUT Q12H [facility] Last Admin: 04/23/24 05:05 Dose: 5,000 unit Documented By: JASEN Latanoprost (Latanoprost 0.005 % Ophth Amarilys 2.5 Ml Drops) 1 drop EYE-BOTH BEDTIME [facility] Last Admin: 04/22/24 22:02 Dose: Not Given Documented By: JASEN Non-Admin Reason: Med Not Available Magnesium Hydroxide (Milk Of Magnesia 30 Ml Oral.Susp) 30 ml PO DAILY PRN PRN Reason: Constipation Meclizine HCl (Meclizine Hcl 25 Mg Tablet) 25 mg PO Q6H PRN PRN Reason: Dizziness Last Admin: 04/23/24 12:19 Dose: 25 mg Documented By: GLENNA Melatonin (Melatonin 3 Mg Tablet) 6 mg PO BEDTIME PRN PRN Reason: Insomnia Metoprolol Tartrate (Metoprolol Tartrate 25 Mg Tablet) 25 mg PO BID [facility]; Protocol Last Admin: 04/23/24 08:47 Dose: 25 mg Documented By: GLENNA Multivitamins/Vitamin C (Multivitamin Tablet) 1 tab PO DAILY [facility] Last Admin: 04/23/24 09:07 Dose: 1 tab Documented By: GLENNA Ondansetron HCl (Ondansetron Hcl 4 Mg/2 Ml Vial) 4 mg IVPUSH Q6H PRN PRN Reason: Nausea and Vomiting Last Admin: 04/23/24 11:57 Dose: 4 mg Documented By: GLENNA Sodium Chloride (0.9 % Sodium Chloride Flush 3 Ml Syringe) 3 ml IVFLUSH QSIDFT [facility] Last Admin: 04/23/24 09:07 Dose: 3 ml Documented By: GLENNA Labs 04/23/24 05:35 04/23/24 05:35 Labs: Laboratory Results - last 24 hr 04/22/24 04/23/24 19:56 05:35 MCV 85.3 MCH 27.3 MCHC 32.0 RDW 14.1 Plt Count 263 MPV 9.8 Immature Gran % (Auto) 0.3 Neut % (Auto) 76.3 H Lymph % (Auto) 15.8 L [place] % (Auto) 5.7 Eos % (Auto) 1.0 Baso % (Auto) 0.9 Lymph # (Auto) 1.2 [place] # (Auto) 0.4 Eos # (Auto) 0.1 Baso # (Auto) 0.1 Abs Immat Gran (auto) 0.02 Absolute Neuts (auto) 5.9 Absolute Nucleated RBC 0.000 Nucleated RBC % (auto) 0.0 Anion Gap 14 Estim Creat Clear Calc 56.1 Estimated GFR > 60 Random Glucose 86 Calcium 8.9 Troponin I High Sens 64.3 H* Microbiology Microbiology Results: Microbiology 04/22/24 Unknown Urine Culture - Final Urine clean catch - Clean Catch Midstream Assessment and Plan (1) Dizziness: Status: Acute Plan 88-year-old female, with a history of TIA to be observed for lightheadedness with elevated blood pressures and troponin Dizziness/vertigo -likely secondary to elevated blood pressures/L heart strain -head ct negtive for acute intracranial abnormality -unable to perform orthostatics due to pt symptoms and ultimate refusal Monitor blood pressure closely, tele monitoring echo Check orthostasis patient can not get MRI due to metallic tea, ? Possible peripheral vertigo Will continue meclizine for now neurology eval PT evaluation Elevated trops/htn urgency -due to htn with suspect L heart strain -echo -cardiology consult-noted ,echo,bb , asa will check lipid panel -monitor tele HTN -add metoprolol 25mg bid -monitor bps dvt prophylaxis- heparin full code Ongoing hospitalization need: Persistent dizziness,elevated troponin, hypertension urgency: Patient in close blood pressure monitoring, closely monitoring for dizziness and neurological monitoring Quality Stroke Does the patient have a stroke diagnosis?: No VTE Prior VTE?: No VTE Risk Level:: Medical - moderate - high VTE Device Contraindication: Treatment Not Indicated VTE Drug Contraindication: N/A - Med Ordered
[2024-04-23] MEDS: Latanoprost 0.005 % Ophth Sol 2.5 ML DROPS 1 DROP EYE-BOTH (20:38)
[2024-04-24] VITALS (9 sets, daily range): BP systolic 117–173; BP diastolic 66–92; PULSE 58–83; RESP 18–20; TEMP 36.2–36.9; O2SAT 96–97
[2024-04-24] MEDS: Heparin Sodium,Porcine 5,000 UNIT/ML VIAL 5000 UNIT SUBCUT (03:35)
[2024-04-24 06:37] LABS: Cholesterol 198 mg/dL (<200); HDL Cholesterol 65 mg/dL (>40); LDL Cholesterol Calculated 118 mg/dL (<100); Triglycerides 76 mg/dL (<150)
[2024-04-24] MEDS: Aspirin Enteric Coated 81 MG TABLET.DR PO (09:21)
[2024-04-24] MEDS: Multivitamin TABLET 1 TAB PO (09:22)
[2024-04-24] MEDS: Dorzolamide/Timolo 2.23%/0.68% 10 ML DRBTL 1 DROP EYE-BOTH (09:22)
[2024-04-24] MEDS: Metoprolol Tartrate 25 MG TABLET PO (09:22)
[2024-04-24] MEDS: 0.9 % Sodium Chloride Flush 3 ML SYRINGE IVFLUSH (09:23)
--- NOTE | 2024-04-24 11:57 | PM.DS ---
DS: Providers Provider Date of Service: 04/24/24 Date of admission: 04/22/24 15:08 Date of discharge: 04/24/24 Primary care physician: Nilesh Ruiz MD Consults: 04/22/24 15:32 Consult to Cardiology Routine Consulting Provider: [facility] Reason for consultation: elevated bps, elevated trops ?L heart strain 04/23/24 09:50 Consult to Neurology Routine Consulting Provider: [facility] Reason for consultation: Vertigo/ataxia / dilated ventcles obn Ct head Has provider been notified: No Attending physician on discharge: Rosalinda Ardon Discharging clinician: Rosalinda Ardon DS: Diagnosis Discharge Diagnosis (1) Dizziness: Status: Acute DS: Summary Hospital Course Hospital Course: 88-year-old female, with a history of TIA, who presents emergency department via EMS with complaints of high blood pressure and dizziness upon awakening this morning. Patient reports that upon wakening this morning she went to get up to use the bathroom and suddenly felt profoundly dizzy. She felt as though she was on a boat as well as the room was spinning around her and very unsteady. Since then describes more a positional lightheadedness. Denies worsening of symptoms with head movements. She called out to her who was in the other room out of approximately 5:15AM and patient then had her blood pressure taken by her and it was 180/120. She states that they then called 911 at that time. Her believes that she has not been drinking an adequate amount of water lately. She denies any headaches, chest pain, shortness for breath. No fevers or chills. No recent illness. On arrival, patient hypertensive to 181/104, vital signs otherwise stable. She was given 10 mg IV labetalol and blood pressure on admission 128/84. She was given a dose of 5 mg diazepam and subsequently developed hypoxia to 88% was placed on 3 L supplemental O2. Unfortunately, patient also very sedated on exam secondary to medication and unable to participate in neuro exam and provide much history. Hematology studies unremarkable. Renal function and electrolyte levels normal. Initial troponin 15.6, repeat 73.8, repeat 70.0. Urinalysis unremarkable. 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 CXR negative for acute cardiopulmonary disease. In addition to labetalol, has also been given meclizine, Reglan, ondansetron, IV NS, and diazepam. Hospital course: Patient came to the hospital because of dizziness look like possible peripheral vertigo, also hypertension urgency: Lab works was also found to have elevated troponin. Patient was seen by Cardiology and Neurology and CT scan had negative, mri unable to have due to meatl tea in her belly, echo seems ef 60-65%. Cardiology recommended to add low-dose metoprolol. Neuro recommended-possible peripheral vertiago, continue meclizine p.r.n., blood pressure control. htn urgency: bp seems fluctuating ,continue metoprolol , monitor blood pressure at home closely. If Her blood pressure remain elevated consistently above 140mmhg -consider outpatient metoprolol dose adjustment. Also seen by PT and recommended home with services. Patient was strongly advised for walking slow , precautions. Follow-up with PCP outpatient plan: continue prn meclizine 25 mg as needed follow up with pt/ot moniter bp at home , keep blood pressure log as per the he monitors her blood pressure at home. Patient was strongly advised for walking slow and take precaution. Above management discussed with the patient and her in detail length they both understand and in agreement with the above plan, time spent 40 minute. Time Attestation Total time managing care of this patient today: 40 mintues. Discharge Coordination Time (in mins): 40 min Quality: Safe Use of Opioids Does Pt have an Active Cancer Diagnosis on the Problem List?: No Quality: Stroke Does the patient have a stroke diagnosis?: No Physical Exam Vital Signs: Vital Signs: Last Vital Signs Temp 98.1 F 04/24/24 11:13 Pulse 59 04/24/24 11:13 Resp 20 04/24/24 11:13 BP 117/66 04/24/24 11:13 Pulse Ox 97 04/24/24 11:13 O2 Del Method Room Air 04/24/24 11:13 O2 Flow Rate 3 04/22/24 14:24 BMI result Body Mass Index 24.9 Appearance: Alert.? Oriented X3.? cvs: [id number], [id number]. res: clear to auscultation ,no rhonchii or wheezing abd: no rebound or guarding ,nt, bs present. ext pulses present , no cyanosis . neuro: nonfocal, dizziness seems to be improved singnificantly. DS: Data Data Completed and Pending Labs on day of discharge: Laboratory Results - last 24 hr 04/24/24 05:47 Hold Purple Top SEE NOTE Triglycerides 76 Cholesterol 198 LDL Cholesterol, Calc 118 H HDL Cholesterol 65 Imaging Chest x-ray: Radiologist's impression: ITS Impressions Chest X-Ray 04/22/24 06:25 IMPRESSION: No acute intrathoracic disease. Incidental findings as described above. Head CT 04/22/24 06:30 IMPRESSION: 1. Unchanged age related cerebral atrophy and ventriculomegaly. 2. No intracranial hemorrhage or skull fracture is seen. 3. No evidence of space occupying lesion could be found. 4. 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 5. 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 6. The current plain CT scan of the brain shows no diagnostic evidence of acute cerebral infarction. Discharge Plan Discharge Anticipated Discharge Date/Time: 04/24/24 11:54 Patient Disposition: Home Health Service Discharge Diagnosis: Hypertension urgency, elevated troponin, dizziness possible peripheral vertigo. Referrals: [facility] [Outside] - 1 Week Nilesh Ruiz MD [Primary Care Provider] - 1 Week Discharge Medications: New meclizine 25 mg Tablet 25 mg PO Q6H PRN (Reason: Dizziness) Qty: 15 0RF metoprolol tartrate 25 mg Tablet 25 mg PO BID Qty: 180 0RF Protocol: Hold for SBP/HR < HOLD for SBP < : 90 HOLD for HR < : 60 Continued multivitamin Tablet 1 tab PO DAILY latanoprost 0.005 % drops 1 drp ophthalmic (eye) BEDTIME aspirin 81 mg Tablet,Delayed Release (Dr/Ec) 81 mg PO DAILY dorzolamide-timolol 22.3-6.8 mg/mL drops 1 drp ophthalmic (eye) Q12H Discharge Orders: Discharge Order (Routine); Ordered 04/24/24 Ordered By: Rosalinda Ardon Diet: Advance to usual diet Activity on Discharge: As tolerated Stand Alone Forms: Patient Portal Discharge page Print Language: Slovenian Care Plan Goals: Patient came to the hospital because of dizziness look like possible peripheral vertigo, also hypertension urgency: Lab works was also found to have elevated troponin. Patient was seen by Cardiology and Neurology and CT scan had negative, echo seems fine. Cardiology recommended to add low-dose metoprolol. Neuro recommended continue meclizine p.r.n. Also seen by PT and recommended home with services. Patient was strongly advised for walking slow , precautions. Follow-up with PCP outpatient Health Concerns: As above. Plan of Treatment: As above. Assessment: As above. Patient Instructions: Dizziness (ED)
--- NOTE | 2024-04-24 11:59 | MHC.CM.PN ---
Patient has been medically cleared for dc to home today, with services. A referral was made to [facility], who has been made aware of today's dc.
--- NOTE | 2024-04-24 13:02 | P.F2F_ITS ---
Service Date Service Date: 04/24/24 Encounter Date of encounter: 04/24/24 Encounter: Possible peripheral vertigo, hypertension urgency. Reasons for Services Signs and symptoms assessed: dizziness, blood pressure monitoring. Reason for care home: CV/CP assess and/or care, medication management, medication treatment and teach disease management Reason for physical therapy: home safety and mobility, therapeutic exercises, restore joint function, gait/transfer training, assess need for DME, ADL tra ining, energy conservation and other Reason for occupational therapy: home safety and mobility, therapeutic exercises, restore joint function, gait/transfer training, assess need for DME, ADL training, energy conservation and other MD Overseeing Care: Nilesh Ruiz Homebound: Leaving the home is medically contraindicated at this time without the asist of a device and/or another person due th the listed conditions above and below. Reason homebound: weakness related to hospital stay Homebound supporting statement: Patient is generalized weak post hospitalization, has multiple comorbidities need help to go to appointments, lab draws, disease management, PT/ot. Certification: Based on the above findings, I certify that this patient is confined to the home and needs intermittent care home care, physical therapy and/or speech therapy, or continues to need occupational therapy. The patient is under my care, and I have initiated the establishment of the plan of care. The patient will be followed by a physician who will periodically review the plan of care. Time Spent With Patient Time: Total time managing care of this patient today ____ minutes.
--- NOTE | 2024-04-24 15:51 | MHC.CM.PN ---
Pt called after she got home to say she does not have scripts for her new meds, no pharmacy listed in chart. Pt said her pharmacy is [facility] [id number] [place], Provider notified and he will send scripts there.
== END 2024-04-24 14:21 | disposition home health service (06) ==
LOC: HO.ED 11:51 → HO.EDOVER 15:30 → HO.IMC 19:03
PROVIDERS: Internal Medicine; Physician Assistant Medical; Admitting Provider Physician Assistant; Emergency Provider Emergency Medicine; PCP Internal Medicine; Visit Provider Internal Medicine
DX: I16.0 Hypertensive urgency (principal); R79.89 Other specified abnormal findings of blood chemistry; R42 Dizziness and giddiness; R09.02 Hypoxemia; Z86.73 Personal history of transient ischemic attack (TIA), and cerebral infarction without residual deficits; Z79.899 Other long term (current) drug therapy
CPT/HCPCS: 36415; 70450; 71045; 80048; 80053; 80061; 81001; 83735; 84484; 85025; 85610; 85730; 87086; 93005; 93306; 95992; 96361; 96372; 96374; 96375; 96376; 97116; 97162; 99222; 99285; J1644; J1920; J2405; J2765; J3360; Q9957

== ENCOUNTER → 2024-04-22 06:09 | Outpatient (BNV) | payer MEDICARE, SELFPAY | PROVIDERS: Emergency Provider Emergency Medicine; PCP Internal Medicine; Visit Provider Internal Medicine Cardiovascular Disease | DX: R94.31 Abnormal electrocardiogram [ECG] [EKG] (principal) | CPT/HCPCS: 93010 ==

== ENCOUNTER 2024-04-22 15:08 | Outpatient (BNV) | payer MEDICARE, SELFPAY | END 2024-04-23 07:00 | PROVIDERS: Admitting Provider Physician Assistant; Emergency Provider Emergency Medicine; PCP Internal Medicine; Visit Provider Internal Medicine Cardiovascular Disease | DX: I34.81 Nonrheumatic mitral (valve) annulus calcification (principal) | CPT/HCPCS: 93306 ==

== ENCOUNTER → 2024-04-22 15:08 | Outpatient (BNV) | payer MEDICARE, SELFPAY | PROVIDERS: Admitting Provider Physician Assistant; Emergency Provider Emergency Medicine; PCP Internal Medicine; Visit Provider Psychiatry & Neurology Neurology | DX: H81.399 Other peripheral vertigo, unspecified ear (principal) | CPT/HCPCS: 99222 ==

== ENCOUNTER → 2024-04-22 15:08 | Outpatient (BNV) | payer MEDICARE, SELFPAY | PROVIDERS: Admitting Provider Physician Assistant; Emergency Provider Emergency Medicine; PCP Internal Medicine; Visit Provider Internal Medicine Cardiovascular Disease | DX: I16.0 Hypertensive urgency (principal) | CPT/HCPCS: 99222 ==

== ENCOUNTER → 2024-04-22 15:08 | Outpatient (BNV) | payer MEDICARE, SELFPAY | PROVIDERS: Admitting Provider Physician Assistant; Emergency Provider Emergency Medicine; PCP Internal Medicine; Visit Provider Physician Assistant | DX: R79.89 Other specified abnormal findings of blood chemistry (principal); R42 Dizziness and giddiness | CPT/HCPCS: 99222; 99231; 99239; G0180 ==